=== PATIENT | female | born 1965 | race Caucasian/White ===

== ENCOUNTER 2017-08-03 14:17 | Observation (INO) | payer SELFPAY ==
[~2017-08-03 14:17] MED LIST: BACT800T5 PO
[2017-08-03 14:20] VITALS: BP 154/100; PULSE 88; RESP 20; TEMP 97.6; O2SAT 98
--- NOTE | 2017-08-03 14:51 | PD ---
HPI Chief Complaint: Chest Pain Time Seen by Provider: 14:31 Travel History International Travel<30 days: No Contact w/Intl Traveler<30days: No Traveled to known affect area: No History of Present Illness HPI 51-year-old female presents to the emergency department for evaluation of left shoulder pain that radiates to the left chest that started approximately 2 days ago. She currently rates the pain 3/10, aching and sharp. She states she did have a sharp headache that resolved approximately one day ago. She has no headache at this time. Patient states that she was seen a winch runner at one point, but cannot elaborate on why she was seen a winch runner. The patient states she has not follow-up with a doctor. She denies taking any medications. She did take an aspirin yesterday, but not today. Patient states that she snorted cocaine yesterday, but started having the pain before she snorted the cocaine. No fevers or chills. She does report a cough and congestion as well. She is a current tobacco user. She denies any exacerbating or alleviating factors. Moderate severity. Patient does state that she vomited 1 yesterday. She has not vomited today. Patient denies any recent surgery or travel. No history DVT or PE. No hemoptysis. She is not on control pills. No leg edema. PFSH Past Medical History Hx Anticoagulant Therapy: No Arthritis: Yes (RA) Anxiety: Yes Cardiovascular Problems: Yes (HTN) Chemotherapy: No Cerebrovascular Accident: Yes Diabetes: No Endocrine: No Headaches: Yes Hepatitis: Yes (c) Musculoskeletal: Yes Neurologic: Yes (cant tell you can't remember runs in family ) Respiratory: No (awak a lot at night can't sleep difficulty breathing) Immunizations Current: Yes Migraines: Yes Seizures: No Thyroid Disease: No : 3 Para: 3 Past Surgical History Abdominal Surgery: No Cardiac Surgery: No Section: Yes Ear Surgery: No Eye Surgery: No Genitourinary Surgery: No Gynecologic Surgery: Yes (c sec) Hysterectomy: No Neurologic Surgery: No Oral Surgery: No Thoracic Surgery: Yes (collapsed lung) Other Surgery: Yes (c sec) Social History Alcohol Use: Yes Tobacco Use: Yes (/2 ppd) Substance Use: Yes (cocaine) Allergies-Medications (Allergen,Severity, Reaction): Coded Allergies: No Known Allergies (Unverified , 04/12/16) Reported Meds & Prescriptions Reported Meds & Active Scripts Active Bactrim DS (Sulfamethoxazole-Trimethoprim DS) 1 Tab Tab 1 Tab PO BID 7 Days Review of Systems Except as stated in HPI: all other systems reviewed are Neg Physical Exam Narrative GENERAL: Well-nourished, well-developed female patient, ambulatory. Afebrile. SKIN: Focused skin assessment warm/dry. HEAD: Normocephalic. Atraumatic. EYES: No scleral icterus. No injection or drainage. NECK: Supple, trachea midline. No JVD or lymphadenopathy. CARDIOVASCULAR: Regular rate and rhythm without murmurs, gallops, or rubs. Bilateral radial and pedal pulses are 2+. RESPIRATORY: Breath sounds equal bilaterally. No accessory muscle use. Lungs sounds are clear to auscultation. GASTROINTESTINAL: Abdomen soft, non-tender, nondistended. MUSCULOSKELETAL: No cyanosis, or edema. BACK: Nontender without obvious deformity. No CVA tenderness. Data Data Last Documented VS Vital Signs Date Time Temp Pulse Resp B/P (MAP) Pulse Ox O2 Delivery O2 Flow Rate FiO2 08/03/17 15:01 99 Room Air 08/03/17 15:01 83 16 123/71 (88) 08/03/17 14:20 97.6 Orders Orders Electrocardiogram (08/03/17 14:46) Basic Metabolic Panel (Bmp) (08/03/17 14:46) Ckmb (Isoenzyme) Profile (08/03/17 14:46) Complete Blood Count With Diff (08/03/17 14:46) Magnesium (Mg) (08/03/17 14:46) Prothrombin Time / Inr (Pt) (08/03/17 14:46) Act Partial Throm Time (Ptt) (08/03/17 14:46) Troponin I (08/03/17 14:46) Chest, Single Ap (08/03/17 14:46) Ecg Monitoring (08/03/17 14:46) Bilateral Bp Monitoring (08/03/17 14:46) Iv Access Insert/Monitor (08/03/17 14:46) Oximetry (08/03/17 14:46) Oxygen Administration (08/03/17 14:46) Aspirin Chew (Aspirin Chew) (08/03/17 15:00) Sodium Chloride 0.9% Flush (Ns Flush) (08/03/17 15:00) Drug Screen, Random Urine (08/03/17 14:46) CKMB (08/03/17 14:43) CKMB% (08/03/17 14:43) Labs Laboratory Tests Test 08/03/17 14:43 08/03/17 15:43 White Blood Count 7.0 TH/MM3 Red Blood Count 5.12 MIL/MM3 Hemoglobin 14.7 GM/DL Hematocrit 43.2 % Mean Corpuscular Volume 84.5 FL Mean Corpuscular Hemoglobin 28.8 PG Mean Corpuscular Hemoglobin Concent 34.1 % Red Cell Distribution Width 13.8 % Platelet Count 313 TH/MM3 Mean Platelet Volume 7.8 FL Neutrophils (%) (Auto) 57.5 % Lymphocytes (%) (Auto) 31.7 % Monocytes (%) (Auto) 6.9 % Eosinophils (%) (Auto) 3.0 % Basophils (%) (Auto) 0.9 % Neutrophils # (Auto) 4.0 TH/MM3 Lymphocytes # (Auto) 2.2 TH/MM3 Monocytes # (Auto) 0.5 TH/MM3 Eosinophils # (Auto) 0.2 TH/MM3 Basophils # (Auto) 0.1 TH/MM3 CBC Comment DIFF FINAL Differential Comment Prothrombin Time 9.4 SEC Prothromb Time International Ratio 0.9 RATIO Activated Partial Thromboplast Time 30.4 SEC Blood Urea Nitrogen 13 MG/DL Creatinine 0.93 MG/DL Random Glucose 107 MG/DL Calcium Level 9.0 MG/DL Magnesium Level 2.3 MG/DL Sodium Level 141 MEQ/L Potassium Level 4.3 MEQ/L Chloride Level 108 MEQ/L Carbon Dioxide Level 25.9 MEQ/L Anion Gap 7 MEQ/L Estimat Glomerular Filtration Rate 63 ML/MIN Total Creatine Kinase 103 U/L Creatine Kinase MB 1.3 NG/ML Troponin I LESS THAN 0.02 NG/ML MDM Medical Decision Making Medical Screen Exam Complete: Yes Emergency Medical Condition: Yes Medical Record Reviewed: Yes Interpretation(s) Last Impressions Chest X-Ray 08/03/17 1446 Signed Impressions: Service Date/Time: Thursday, August 03, 2017 14:52 - CONCLUSION: No acute disease. Mich Garcia MD Differential Diagnosis Chest wall pain versus anxiety versus ACS versus pneumonia versus pneumothorax versus cocaine induced chest pain versus unlikely PE Narrative Course 51-year-old female presents to the emergency department for evaluation of left- sided chest pain that started 2 days ago. She does not cocaine yesterday. EKG shows sinus rhythm, heart rate 79, no acute ST changes. CBC, BMP, CK, troponin , magnesium, PTT, PT/INR, UDS are ordered and pending. Patient is given aspirin 162 mg by mouth. Chest x-ray is ordered and pending. CBC is unremarkable. BMP shows no acute abnormality. CK is 103. Troponin is less than 0.02. Magnesium is 2.3. Coags show no acute abnormality. UDS is pending. Chest x-ray shows no acute disease. Patient will be admitted to the chest pain center for further evaluation. Diagnosis Primary Impression: Chest pain Qualified Codes: R07.9 - Chest pain, unspecified Admitting Information Admitting Physician Requests: Shyanne Newman Aug 03, 2017 14:51
[2017-08-03] MEDS ORDERED: ASPIRIN 81 MG CHEW TAB PO ONE (15:00)
[2017-08-03] MEDS ORDERED: SODIUM CHLORIDE 0.9% FLUSH 10 ML FLUSH IVF PRN (15:00)
[2017-08-03 15:01] VITALS: BP 123/71; PULSE 77; PULSE 83; RESP 16; RESP 18; O2SAT 99
--- NOTE | 2017-08-03 15:03 | RADRPT ---
EXAM DATE/TIME: 08/03/2017 14:52 [facility] COMPARISON: CHEST SINGLE AP, April 12, 2016, 21:49. INDICATIONS : Chest pain and shortness of breath for 3 days. MEDICAL HISTORY : Stroke. SURGICAL HISTORY : None. ENCOUNTER: Initial ACUITY: 3 days PAIN SCORE: 3/10 LOCATION: Bilateral chest FINDINGS: A single view of the chest demonstrates the lungs to be symmetrically aerated without evidence of mas s, infiltrate or effusion. The cardiomediastinal contours are unremarkable. Osseous structures are intact. There are multiple overlying electrocardiogram leads. CONCLUSION: No acute disease. Mich Garcia MD on August 03, 2017 at 15:01 Board Certified Radiologist. This report was verified electronically.
[2017-08-03 15:12] LABS: BASOPHIL # 0.1 TH/MM3 (0-0.2); BASOPHIL % 0.9 % (0.0-2.0); EOSINOPHIL # 0.2 TH/MM3 (0-0.4); HEMATOCRIT 43.2 % (35.0-46.0); HEMOGLOBIN 14.7 GM/DL (11.6-15.3); LYMPH % 31.7 % (9.0-44.0); LYMPHOCYTE # 2.2 TH/MM3 (1.0-4.8); MEAN CELL VOLUME 84.5 FL (80.0-100.0); MEAN CORPUSCULAR HEMOGLOBIN 28.8 PG (27.0-34.0); MEAN CORPUSCULAR HGB CONC 34.1 % (32.0-36.0); MEAN PLATELET VOLUME 7.8 FL (7.0-11.0); MONO % 6.9 % (0.0-8.0); MONOCYTE # 0.5 TH/MM3 (0-0.9); NEUT % 57.5 % (16.0-70.0); PLATELET COUNT 313 TH/MM3 (150-450); RED BLOOD COUNT 5.12 MIL/MM3 (4.00-5.30); RED CELL DISTRIBUTION WIDTH 13.8 % (11.6-17.2)
[2017-08-03 15:27] LABS: INTERNATIONAL NORMALIZED RATIO 0.9 RATIO; PROTHROMBIN TIME - PATIENT 9.4 SEC (9.8-11.6)
[2017-08-03 15:34] LABS: BICARBONATE 25.9 MEQ/L (21.0-32.0); BLOOD UREA NITROGEN 13 MG/DL (7-18); CHLORIDE 108 MEQ/L (98-107); CREATININE 0.93 MG/DL (0.50-1.00); GLOMERULAR FILTRATION RATE 63 ML/MIN (>89); GLUCOSE,RANDOM 107 MG/DL (74-106); MAGNESIUM 2.3 MG/DL (1.5-2.5); SODIUM (NA) 141 MEQ/L (136-145); TROPONIN I LESS THAN 0.02 NG/ML (0.02-0.05)
[2017-08-03] MEDS ORDERED: ALPRAZolam 0.25 MG TAB PO PRN (18:00)
[2017-08-03] MEDS ORDERED: ACETAMINOPHEN/HYDROcodone 325 MG/7.5 MG TAB PO PRN (18:00)
[2017-08-03] MEDS ORDERED: ONDANSETRON HCL 4 MG/2 ML VIAL IV PUSH PRN (18:00)
[2017-08-03] MEDS ORDERED: cloNIDine HCL 0.1 MG TAB PO PRN (18:00)
[2017-08-03] MEDS ORDERED: ACETAMINOPHEN 500 MG CPLT PO PRN (18:00)
[2017-08-03] MEDS ORDERED: RESP: ALBUTEROL 2.5 MG/IPRATROPIUM 0.5 MG NEB (PRN) INH (18:00)
--- NOTE | 2017-08-03 18:08 | HHI.HP ---
HPI Primary Care Physician No Primary Care Physician Chief Complaint Chest pain History of Present Illness This is a 51-year-old female that presents to ED via private vehicle with a complaint of 3 days of intermittent chest discomfort. She claims a left-sided sharp discomfort. Not exertional. States she does nothing strenuous. It will last 1-2 minutes. She had times short of breath and diaphoretic with the. She has been nauseous with the discomforts as well. She had one episode of emesis and felt better afterwards. He was nonbloody nonbilious. Denies dark or tarry stools. Denies blood in stool. Denies fevers or chills. Denies recent travel. Patient states she has a chronic cough read states "I have a smoker's cough." Nonproductive. Patient also admits to using cocaine. States she used cocaine 2 days ago. States "I snorted 2 lines." States last time she is cocaine was 4 months ago. She also states that she took a Xanax from a friend thinking that would help with the discomfort but it did not. Review of Systems General: Patient denies fevers, chills recent, and recent travel HEENT: Patient denies headache, sore throat, difficulty swallowing. Cardiovascular: She had diaphoresis. Has the chest discomfort as mentioned above. Denies sensation of heart beating rapidly or irregularly. No syncope. Respiratory: Has had intermittent shortness of breath. Denies inspirational chest discomfort. Denies coughing wheezing or hemoptysis. GI: Complaining of intermittent nausea with one episode of nonbloody, nonbilious emesis. Patient denies diarrhea, abdominal pain, bloody stools. Musculoskeletal: Patient denies joint pain or edema. Denies calf pain or edema. Neurovascular: Patient denies numbness, tingling, weakness in extremities. Denies headache. Endocrine: Denies polyuria and polydipsia. Hematologic: Denies easy bruising. Skin: Denies rash or itching. Past Family Social History Allergies: Coded Allergies: No Known Allergies (Unverified , 04/12/16) Past Medical History Substance abuse. Tobacco abuse. Denies hypertension, hyperlipidemia, diabetes , and known CAD. Past Surgical History Noncontributory. Reported Medications Reported Meds & Active Scripts Active Bactrim DS (Sulfamethoxazole-Trimethoprim DS) 1 Tab Tab 1 Tab PO BID 7 Days Active Ordered Medications Current Medications Medications (Trade) Dose Ordered Sig/Gus Route Start Time Stop Time Status Last Admin (NS Flush) 2 ml UNSCH PRN IVF 08/03/17 15:00 Family History States her mother had an [place] in her 60s. Social History Smokes one half pack of cigarettes a day for 30 years. Has occasional alcohol. States she snorted 2 lines of cocaine 2 days ago and prior that it had been 4 months since last using cocaine. Denies other illicit drugs. Use a friend Xanax to help with the discomfort. Patient states she is retired. Physical Exam Vital Signs Vital Signs Date Time Temp Pulse Resp B/P (MAP) Pulse Ox O2 Delivery O2 Flow Rate FiO2 08/03/17 15:01 99 Room Air 08/03/17 15:01 83 16 123/71 (88) 99 Room Air 08/03/17 15:01 16 99 Room Air 08/03/17 15:01 77 18 99 Room Air 08/03/17 14:20 97.6 88 20 154/100 (118) 98 Room Air Physical Exam GENERAL: This is a well-nourished, well-developed patient, in no apparent distress. Patient speaks in clear complete sentences. Patient is pleasant. HEENT: Head is atraumatic and normocephalic. Neck is supple without lymphadenopathy and trachea is midline. No JVD or carotid bruits. CARDIOVASCULAR: Regular rate and rhythm without murmurs, gallops, or rubs. RESPIRATORY: Clear to auscultation. Breath sounds equal bilaterally. No wheezes , rales, or rhonchi. Chest wall is nontender. No use of accessory muscles. GASTROINTESTINAL: Abdomen is nontender, nondistended. Abdomen soft. No obvious pulsatile mass or bruit. No CVA tenderness. Strong femoral pulses bilaterally. Normal bowel sounds in all quadrants. MUSCULOSKELETAL: Patient is moving upper and lower extremities freely. No calf tenderness or edema, no Homans sign. Strong pulses in upper and lower extremities. NEUROLOGICAL: Patient is alert and oriented. Cranial nerves 2-12 are grossly intact. No focal deficits and speech is clear. SKIN: No rash and turgor is normal. Laboratory Laboratory Tests Test 08/03/17 14:43 08/03/17 15:43 White Blood Count 7.0 Red Blood Count 5.12 Hemoglobin 14.7 Hematocrit 43.2 Mean Corpuscular Volume 84.5 Mean Corpuscular Hemoglobin 28.8 Mean Corpuscular Hemoglobin Concent 34.1 Red Cell Distribution Width 13.8 Platelet Count 313 Mean Platelet Volume 7.8 Neutrophils (%) (Auto) 57.5 Lymphocytes (%) (Auto) 31.7 Monocytes (%) (Auto) 6.9 Eosinophils (%) (Auto) 3.0 Basophils (%) (Auto) 0.9 Neutrophils # (Auto) 4.0 Lymphocytes # (Auto) 2.2 Monocytes # (Auto) 0.5 Eosinophils # (Auto) 0.2 Basophils # (Auto) 0.1 CBC Comment DIFF FINAL Differential Comment Prothrombin Time 9.4 Prothromb Time International Ratio 0.9 Activated Partial Thromboplast Time 30.4 Blood Urea Nitrogen 13 Creatinine 0.93 Random Glucose 107 Calcium Level 9.0 Magnesium Level 2.3 Sodium Level 141 Potassium Level 4.3 Chloride Level 108 Carbon Dioxide Level 25.9 Anion Gap 7 Estimat Glomerular Filtration Rate 63 Total Creatine Kinase 103 Creatine Kinase MB 1.3 Troponin I LESS THAN 0.02 Urine Opiates Screen NEG Urine Barbiturates Screen NEG Urine Amphetamines Screen NEG Urine Benzodiazepines Screen POS Urine Cocaine Screen POS Urine Cannabinoids Screen NEG Result Diagram: 08/03/17 1443 08/03/17 1443 Imaging Last 48 hours Impressions Chest X-Ray 08/03/17 1446 Signed Impressions: Service Date/Time: Thursday, August 03, 2017 14:52 - CONCLUSION: No acute disease. Mich Garcia MD Course Initial EKG has sinus rhythm without significant ST segment depressions or elevations. Caprini VTE Risk Assessment Caprini VTE Risk Assessment: No/Low Risk (score <= 1) Caprini Risk Assessment Model Point Value = 1 Point Value = 2 Point Value = 3 Point Value = 5 Age 41-60 Minor surgery BMI > 25 kg/m2 Swollen legs Varicose veins or History of unexplained or recurrent spontaneous Oral contraceptives or hormone replacement Sepsis (< 1 month) Serious lung disease, including pneumonia (< 1 month) Abnormal pulmonary function Acute myocardial infarction Congestive heart failure (< 1 month) History of inflammatory bowel disease Medical patient at bed rest Age 61-74 Arthroscopic surgery Major open surgery (> 45 min) Laparoscopic surgery (> 45 min) Malignancy Confined to bed (> 72 hours) Immobilizing plaster cast Central venous access Age >= 75 History of VTE Family history of VTE Factor V Leiden Prothrombin [id number] Lupus anticoagulant Anticardiolipin antibodies Elevated serum homocysteine Heparin-induced thrombocytopenia Other congenital or acquired thrombophilia Stroke (< 1 month) Elective arthroplasty Hip, pelvis, or leg fracture Acute spinal cord injury (< 1 month) Prophylaxis Regimen Total Risk Factor Score Risk Level Prophylaxis Regimen 0-1 Low Early ambulation 2 Moderate Order ONE of the following: *Sequential Compression Device (SCD) *Heparin 5000 units SQ BID 3-4 Higher Order ONE of the following medications: *Heparin 5000 units SQ TID *Enoxaparin/Lovenox 40 mg SQ daily (WT < 150 kg, CrCl > 30 mL/min) *Enoxaparin/Lovenox 30 mg SQ daily (WT < 150 kg, CrCl > 10-29 mL/min) *Enoxaparin/Lovenox 30 mg SQ BID (WT < 150 kg, CrCl > 30 mL/min) AND/OR *Sequential Compression Device (SCD) 5 or more Highest Order ONE of the following medications: *Heparin 5000 units SQ TID (Preferred with Epidurals) *Enoxaparin/Lovenox 40 mg SQ daily (WT < 150 kg, CrCl > 30 mL/min) *Enoxaparin/Lovenox 30 mg SQ daily (WT < 150 kg, CrCl > 10-29 mL/min) *Enoxaparin/Lovenox 30 mg SQ BID (WT < 150 kg, CrCl > 30 mL/min) AND *Sequential Compression Device (SCD) Assessment and Plan Assessment and Plan * Chest pain: Patient will continue to have serial cardiac enzymes and EKGs for ruling out purposes. She has been seen by Dr. Diego Banks of cardiology in the chest pain center. States she can walk on a treadmill. Patient will proceed with a Tom protocol ETT if ruling out. She'll be discharged home if her stress test was nonischemic with instructions to follow-up with a local primary care physician. Return to ED for interval issues. * Cocaine abuse: Patient has been counseled on importance of never using cocaine again. She was told that it could kill her. Voices understanding. * Tobacco abuse: Patient counseled on importance of smoking cessation. Patient is stable this time. She is agreeable to this plan. Jose Garcia Aug 03, 2017 18:08
[2017-08-03 18:33] VITALS: BP 123/78; PULSE 80; RESP 16; O2SAT 98
[2017-08-03] MEDS: PANTOPRAZOLE SOD 40 MG DELAYED RELEASE TAB PO SCH (18:37)
[2017-08-03 19:50] LABS: TROPONIN I LESS THAN 0.02 NG/ML (0.02-0.05)
[2017-08-03 21:15] LABS: TROPONIN I LESS THAN 0.02 NG/ML (0.02-0.05)
[2017-08-03 22:09] VITALS: BP 154/61; PULSE 91; RESP 18; TEMP 98.5; O2SAT 97
[2017-08-03 22:59] VITALS: O2SAT 97
[2017-08-03 23:34] VITALS: BP 143/61; PULSE 87; RESP 18; TEMP 98.9; O2SAT 95
[2017-08-04 04:50] VITALS: BP 113/60; PULSE 72; RESP 18; TEMP 97.8; O2SAT 95
[2017-08-04 05:03] VITALS: PULSE 73
--- NOTE | 2017-08-04 07:06 | EKG ---
Date Performed: 08/03/2017 Time Performed: 18:37:16 PTAGE: 51 years EKG: Sinus rhythm NORMAL ECG Since PREVIOUS TRACING , no significant change noted PREVIOUS TRACIN08/03/2017 14.39 DOCTOR: Marquita Gonzalez Interpretating Date/Time 08/04/2017 07:05:47
--- NOTE | 2017-08-04 07:08 | EKG ---
Date Performed: 08/03/2017 Time Performed: 21:24:55 PTAGE: 51 years EKG: Sinus rhythm NONSPECIFIC T-WAVE ABNORMALITY BORDERLINE ECG Since PREVIOUS TRACING , no significant change noted PREVIOUS TRACIN08/03/2017 18.37 DOCTOR: Marquita Gonzalez Interpretating Date/Time 08/04/2017 07:07:19
[2017-08-04 07:54] VITALS: BP 116/67; PULSE 79; PULSE 91; RESP 18; TEMP 97.8; O2SAT 95
--- NOTE | 2017-08-04 07:56 | PD.CARD.PN ---
Subjective Subjective Remarks No current chest discomfort. One episode of left anterior chest discomfort overnight. Characterized as quick onset, sharp pain. No radiation. Severity moderate. No associated symptoms. Duration 30 seconds. No known precipitating or relieving factors. Objective Medications Current Medications Medications (Trade) Dose Ordered Sig/Gus Route Start Time Stop Time Status Last Admin (NS Flush) 2 ml UNSCH PRN IVF 08/03/17 15:00 (Tylenol) 500 mg Q4H PRN PO 08/03/17 18:00 08/03/17 23:55 (Randolph 7.5-325 Mg) 1 tab Q4H PRN PO 08/03/17 18:00 (Zofran Inj) 4 mg Q6H PRN IV PUSH 08/03/17 18:00 (Protonix) 40 mg DAILY PO 08/03/17 18:00 08/03/17 18:37 (Aspirin) 325 mg DAILY PO 08/04/17 09:00 (Xanax) 0.25 mg Q8H PRN PO 08/03/17 18:00 (Duoneb Neb) 1 ampule Q4HR NEB PRN INH 08/03/17 18:00 (Catapres) 0.1 mg Q4H PRN PO 08/03/17 18:00 Vital Signs / I&O Vital Signs Date Time Temp Pulse Resp B/P (MAP) Pulse Ox O2 Delivery O2 Flow Rate FiO2 08/04/17 07:54 91 08/04/17 07:54 97.8 79 18 116/67 (83) 95 08/04/17 05:03 73 08/04/17 04:50 97.8 72 18 113/60 (77) 95 08/03/17 23:34 98.9 87 18 143/61 (88) 95 08/03/17 22:59 97 08/03/17 22:09 98.5 91 18 154/61 (92) 97 08/03/17 18:33 80 16 123/78 (93) 98 Room Air 08/03/17 15:01 99 Room Air 08/03/17 15:01 83 16 123/71 (88) 99 Room Air 08/03/17 15:01 16 99 Room Air 08/03/17 15:01 77 18 99 Room Air 08/03/17 14:20 97.6 88 20 154/100 (118) 98 Room Air Physical Exam GENERAL: Alert WN, WD, NAD, pleasant, female who appears older than stated age. HEAD: NC, AT CV: RRR, without murmur, rub, gallop, no JVD, S1-S2 no S3-S4. Chest wall nontender with palpation. RESP: Clear lungs throughout bilateral, no crackles, wheeze, rhonchi, symmetrical chest rise, nonlabored, able to speak in full sentences MS: Normal tone 4 extremities, full range of motion PSYCH: A+O 3, pleasant affect, appropriate speech, mood, insight and judgment SKIN: Normal turgor, normal texture Laboratory Laboratory Tests Test 08/03/17 14:43 08/03/17 15:43 08/03/17 18:25 08/03/17 20:47 White Blood Count 7.0 TH/MM3 Red Blood Count 5.12 MIL/MM3 Hemoglobin 14.7 GM/DL Hematocrit 43.2 % Mean Corpuscular Volume 84.5 FL Mean Corpuscular Hemoglobin 28.8 PG Mean Corpuscular Hemoglobin Concent 34.1 % Red Cell Distribution Width 13.8 % Platelet Count 313 TH/MM3 Mean Platelet Volume 7.8 FL Neutrophils (%) (Auto) 57.5 % Lymphocytes (%) (Auto) 31.7 % Monocytes (%) (Auto) 6.9 % Eosinophils (%) (Auto) 3.0 % Basophils (%) (Auto) 0.9 % Neutrophils # (Auto) 4.0 TH/MM3 Lymphocytes # (Auto) 2.2 TH/MM3 Monocytes # (Auto) 0.5 TH/MM3 Eosinophils # (Auto) 0.2 TH/MM3 Basophils # (Auto) 0.1 TH/MM3 CBC Comment DIFF FINAL Differential Comment Prothrombin Time 9.4 SEC Prothromb Time International Ratio 0.9 RATIO Activated Partial Thromboplast Time 30.4 SEC Blood Urea Nitrogen 13 MG/DL Creatinine 0.93 MG/DL Random Glucose 107 MG/DL Calcium Level 9.0 MG/DL Magnesium Level 2.3 MG/DL Sodium Level 141 MEQ/L Potassium Level 4.3 MEQ/L Chloride Level 108 MEQ/L Carbon Dioxide Level 25.9 MEQ/L Anion Gap 7 MEQ/L Estimat Glomerular Filtration Rate 63 ML/MIN Total Creatine Kinase 103 U/L 84 U/L 78 U/L Creatine Kinase MB 1.3 NG/ML Troponin I LESS THAN 0.02 NG/ML LESS THAN 0.02 NG/ML LESS THAN 0.02 NG/ML Urine Opiates Screen NEG Urine Barbiturates Screen NEG Urine Amphetamines Screen NEG Urine Benzodiazepines Screen POS Urine Cocaine Screen POS Urine Cannabinoids Screen NEG Imaging Last 24 hours Impressions Chest X-Ray 08/03/17 1446 Signed Impressions: Service Date/Time: Thursday, August 03, 2017 14:52 - CONCLUSION: No acute disease. Mich Garcia MD Assessment and Plan Assessment and Plan #1 Chest pain-ruled out with serial EKGs and cardiac enzymes. Proceed with exercise stress testing. If unremarkable, plans to discharge home with follow up with PCP. Patient agreeable to plan of care. #2 Tobacco use-strongly encouraged and stressed the importance of tobacco cessation. Instructed to quit smoking. #3 Cocaine use-discussed risk of cocaine use, including by not limited to, [place] and . Instructed to quit using cocaine. Corine Jimenez [facility] Aug 04, 2017 07:56
[2017-08-04] MEDS: PANTOPRAZOLE SOD 40 MG DELAYED RELEASE TAB PO SCH (08:10)
[2017-08-04] MEDS ORDERED: ASPIRIN 325 MG TAB PO SCH (09:00)
[2017-08-04 11:37] VITALS: BP 103/58; PULSE 79; RESP 18; TEMP 97.6; O2SAT 96
--- NOTE | 2017-08-04 12:08 | EKG ---
Date Performed: 08/03/2017 Time Performed: 14:39:48 PTAGE: 51 years EKG: Sinus rhythm NORMAL ECG Since PREVIOUS TRACING , no significant change noted PREVIOUS TRACIN04/12/2016 22.36 DOCTOR: Marquita Gonzalez Interpretating Date/Time 08/04/2017 12:08:07
--- NOTE | 2017-08-04 12:14 | TR ---
Date Performed: 08/04/2017 Time Performed: 10:23:22 DOCTOR: Marquita Gonzalez DRUG LIST: CLINICAL HISTORY: REASON FOR TEST: REASON FOR ENDING: OBSERVATION: CONCLUSION: Tom protocol attempted. Stopped sec to patient request to stop. Reporting inabilit y to keep up with speed and shortness of breath. No acute findings on EKG or with physical exam. Will convert to lexiscan. COMMENTS:
[2017-08-04] MEDS ORDERED: REGADENOSON INJ 0.4 MG/5 ML SYR ONE (13:55)
[2017-08-04 15:40] VITALS: BP 116/70; PULSE 85; RESP 18; TEMP 97.9; O2SAT 94
--- NOTE | 2017-08-04 15:46 | RADRPT ---
EXAM DATE/TIME: 08/04/2017 13:37 [facility] COMPARISON: No previous studies available for comparison. INDICATIONS : Lt shoulder pain radiating to left chest. Angina. DOSE: 25.9 mCi Tc99m Myoview at stress. 8.7 mCi Tc99m Myoview at rest. 0.4 mg Lexiscan STRESS SYMPTOMS: Chest pain and dyspnea. EJECTION FRACTION: > 70% MEDICAL HISTORY : Stroke. Smoker. Cocaine use. SURGICAL HISTORY : section. ENCOUNTER: Initial ACUITY: 2 days PAIN SCALE: 6/10 LOCATION: Left chest TECHNIQUE: The patient underwent pharmacologic stress with infusion of prescribed dose. Continuous ECG tracing was monitored during stress. Gated SPECT imaging was performed after stress and conventional SPECT i maging was performed at rest. The examination was performed on a SPECT/CT scanner, both attenuation and non-corrected datasets were reviewed. FINDINGS: DISTRIBUTION: The maximum perfused segment at stress is in the lateral wall. PERFUSION STUDY: The pattern of perfusion at stress is within normal limits. GATED STUDY: There is intact wall motion and thickening without hypokinetic or dyskinetic segments. CONCLUSION: No evidence of fixed or reversible perfusion abnormalities. Normal wall motion and ejection fraction. RISK CATEGORY: Low (<1% Annual Mortality Rate) Donn Rivera MD on August 04, 2017 at 15:43 Board Certified Radiologist. This report was verified electronically.
--- NOTE | 2017-08-04 15:52 | HHI.DCPOC ---
Discharge Care Plan Diagnosis: (1) Atypical chest pain (2) Tobacco abuse (3) Cocaine abuse Goals to Promote Your Health * To prevent worsening of your condition and complications * To maintain your health at the optimal level Directions to Meet Your Goals Take your medications as prescribed Follow your dietary instruction Follow activity as directed Keep your appointments as scheduled Take your immunizations and boosters as scheduled If your symptoms worsen call your PCP, if no PCP go to Urgent Care Center or Emergency Room Smoking is Dangerous to Your Health. Avoid second hand smoke Call the 24-hour hour crisis hotline for domestic abuse at Corine Jimenez Aug 04, 2017 15:52
--- NOTE | 2017-08-05 14:09 | TR ---
Date Performed: 08/04/2017 Time Performed: 13:57:30 DOCTOR: Marquita Gonzalez DRUG LIST: CLINICAL HISTORY: ANGINA REASON FOR TEST: REASON FOR ENDING: OBSERVATION: CONCLUSION: Lexiscan stress test was performed under standard four minute protocol. Radionuclid e was injected one minute prior to ending the test. No electrocardiographic abormalities were present to suggest ischemia. Nuclear imaging and interpretation are pending. COMMENTS:
== END 2017-08-04 17:12 | disposition home or self-care (01) ==
LOC: NEPE 14:17 → NEDA 15:59 → NEPGCP 18:43
PROVIDERS: ADMIT Internal Medicine Cardiovascular Disease; ATTEND Internal Medicine Cardiovascular Disease
DX: R07.89 Other chest pain (principal); F17.200 Nicotine dependence, unspecified, uncomplicated; F14.10 Cocaine abuse, uncomplicated; M25.512 Pain in left shoulder; I10 Essential (primary) hypertension; M06.9 Rheumatoid arthritis, unspecified; G43.909 Migraine, unspecified, not intractable, without status migrainosus; Z86.73 Personal history of transient ischemic attack (TIA), and cerebral infarction without residual deficits
CPT/HCPCS: 71010; 78452; 80048; 80307; 82550; 82552; 83735; 84484; 85025; 85610; 85730; 93005; 93017; 99285; A9502; G0378; J2785

== ENCOUNTER 2017-10-01 10:56 | Emergency (ER) | payer SELFPAY ==
[~2017-10-01] VITALS: Ht 160 cm; Wt 81.5 kg
[2017-10-01 10:58] VITALS: BP 189/109; PULSE 101; RESP 16; TEMP 98.7; O2SAT 96
[2017-10-01] MEDS ORDERED: SODIUM CHLOR 0.9% 1000 ML INJ 1,000 ML IV ONE (11:23)
[2017-10-01] MEDS ORDERED: ONDANSETRON HCL 4 MG/2 ML VIAL IVP ONE (11:30)
[2017-10-01] MEDS ORDERED: diphenhydrAMINE HCL 50 MG/ML VIAL IVP ONE (11:30)
[2017-10-01] MEDS ORDERED: KETOROLAC TROMETHAMINE 30 MG/ML (IVP) VIAL IVP ONE (11:30)
[2017-10-01] MEDS ORDERED: PROCHLORPERAZINE INJ 10 MG/2 ML VIAL IVP ONE (11:30)
[2017-10-01] MEDS: SODIUM CHLORIDE 0.9% FLUSH 10 ML FLUSH IVF PRN ×2 (11:33→13:43)
[2017-10-01 11:50] LABS: BASOPHIL # 0.1 TH/MM3 (0-0.2); EOSINOPHIL # 0.3 TH/MM3 (0-0.4); EOSINOPHIL % 3.8 % (0.0-4.0); HEMATOCRIT 46.1 % (35.0-46.0); HEMOGLOBIN 15.6 GM/DL (11.6-15.3); LYMPH % 32.1 % (9.0-44.0); LYMPHOCYTE # 2.3 TH/MM3 (1.0-4.8); MEAN CELL VOLUME 83.3 FL (80.0-100.0); MEAN CORPUSCULAR HEMOGLOBIN 28.2 PG (27.0-34.0); MEAN CORPUSCULAR HGB CONC 33.8 % (32.0-36.0); MEAN PLATELET VOLUME 7.8 FL (7.0-11.0); MONOCYTE # 0.6 TH/MM3 (0-0.9); NEUT % 55.1 % (16.0-70.0); PLATELET COUNT 302 TH/MM3 (150-450); RED BLOOD COUNT 5.54 MIL/MM3 (4.00-5.30); WHITE BLOOD COUNT 7.3 TH/MM3 (4.0-11.0)
[2017-10-01 12:00] VITALS: BP 144/66; PULSE 87; O2SAT 98
--- NOTE | 2017-10-01 12:02 | RADRPT ---
EXAM DATE/TIME: 10/01/2017 11:44 [facility] COMPARISON: CT BRAIN W/O CONTRAST, April 12, 2016, 22:06. INDICATIONS : Cephalgia for two days. RADIATION DOSE: 56.35 CTDIvol (mGy) MEDICAL HISTORY : Stroke. Hepatitis C. SURGICAL HISTORY : None. ENCOUNTER: Initial ACUITY: 2 days PAIN SCALE: 10/10 LOCATION: Bilateral head TECHNIQUE: Multiple contiguous axial images were obtained of the head. Using automated exposure control and adj ustment of the mA and/or kV according to patient size, radiation dose was kept as low as reasonably a chievable to obtain optimal diagnostic quality images. DICOM format image data is available electro nically for review and comparison. FINDINGS: CEREBRUM: The ventricles are normal for age. No evidence of midline shift, mass lesion, hemorrhage or acute in farction. No extra-axial fluid collections are seen. There is some stable chronic white matter sarmiento es bilaterally. POSTERIOR FOSSA: The cerebellum and brainstem are intact. The 4th ventricle is midline. The cerebellopontine angle i s unremarkable. EXTRACRANIAL: The visualized portion of the orbits is intact. SKULL: The calvaria is intact. No evidence of skull fracture. No new or significant changes compared to the prior study. CONCLUSION: Stable CT scan of the brain compared to 04/12/2016. No acute pathology. Phil Raman MD on October 01, 2017 at 11:59 Board Certified Radiologist. This report was verified electronically.
[2017-10-01 12:04] LABS: PROTHROMBIN TIME - PATIENT 9.7 SEC (9.8-11.6)
[2017-10-01 12:06] LABS: AST (GOT) 23 U/L (15-37); BICARBONATE 27.2 MEQ/L (21.0-32.0); BLOOD UREA NITROGEN 10 MG/DL (7-18); CALCIUM 9.2 MG/DL (8.5-10.1); CHLORIDE 108 MEQ/L (98-107); CREATININE 0.85 MG/DL (0.50-1.00); GLOMERULAR FILTRATION RATE 70 ML/MIN (>89); GLUCOSE,RANDOM 98 MG/DL (74-106); SODIUM (NA) 139 MEQ/L (136-145)
[2017-10-01 12:07] LABS: ALT (GPT) 22 U/L (10-53)
[2017-10-01 12:09] LABS: ALKALINE PHOSPHATASE 98 U/L (45-117); TOTAL BILIRUBIN ADULT 0.4 MG/DL (0.2-1.0); TOTAL PROTEIN 8.2 GM/DL (6.4-8.2)
--- NOTE | 2017-10-01 12:43 | PD ---
HPI Chief Complaint: Headache Time Seen by Provider: 11:10 Travel History International Travel<30 days: No Contact w/Intl Traveler<30days: No Traveled to known affect area: No History of Present Illness HPI 51-year-old female with PMH of anxiety, hepatitis C, TIA presents to the ED for evaluation of 05/17 posterior headache. Gradual onset last night. Worsened by exposure to light, movement. Accompanied by mild nausea, photophobia and seeing spots. Patient denies fever, chills, vomiting, CP, palpitations, SOB, unilateral weakness, facial droop, difficulties with speech, neck or back pain, cold or flu symptoms, history of migraines, history of seasonal allergies. She did not receive this years flu vaccines. at bedside states that he just got over the flu. PFSH Past Medical History Hx Anticoagulant Therapy: No Arthritis: Yes (RA) Anxiety: Yes Heart Rhythm Problems: No Cardiac Catheterization: No Cardiovascular Problems: No High Cholesterol: No Chemotherapy: No Congestive Heart Failure: No Cerebrovascular Accident: Yes Diabetes: No Endocrine: No Headaches: Yes Hepatitis: Yes (Hep C) Heparin Induced Thrombocytopen: No Hypertension: No Musculoskeletal: Yes Neurologic: Yes Respiratory: No Immunizations Current: Yes Migraines: Yes Seizures: No Thyroid Disease: No ?: Unknown : 3 Para: 3 Past Surgical History Abdominal Surgery: No Cardiac Surgery: No Section: Yes Coronary Artery Bypass Graft: No Ear Surgery: No Eye Surgery: No Genitourinary Surgery: No Gynecologic Surgery: Yes (c sec) Hysterectomy: No Neurologic Surgery: No Oral Surgery: No Thoracic Surgery: Yes (collapsed lung) Other Surgery: Yes (c sec) Family History Family Myocardial Infarction: Yes Social History Alcohol Use: Yes Tobacco Use: Yes (1/2 ppd) Substance Use: Yes (cocaine) Allergies-Medications (Allergen,Severity, Reaction): Coded Allergies: No Known Allergies (Unverified Allergy, Unknown, 10/01/17) Reported Meds & Prescriptions Reported Meds & Active Scripts Active No Active Prescriptions or Reported Medications Review of Systems Except as stated in HPI: all other systems reviewed are Neg Physical Exam Narrative GENERAL: Well-nourished, well-developed anxious white female in no acute distress. SKIN: Focused skin assessment warm/dry. HEAD: Normocephalic. Atraumatic. EYES: No scleral icterus. No injection or drainage. PERRLA. EOMI. NECK: Supple, trachea midline. No JVD or lymphadenopathy. No nuchal rigidity. No midline tenderness. No limitations to range of motion. CARDIOVASCULAR: Regular rate and rhythm without murmurs, gallops, or rubs. RESPIRATORY: Breath sounds clear and equal bilaterally. No accessory muscle use. GASTROINTESTINAL: Abdomen soft, non-tender, nondistended. Active bowel sounds. MUSCULOSKELETAL: No cyanosis, or edema. NEUROLOGICAL: Awake and alert. Cranial nerves II through XII intact. Motor and sensory grossly within normal limits. Five out of 5 muscle strength in all muscle groups. Normal speech. BACK: Nontender without obvious deformity. No CVA tenderness. Data Data Last Documented VS Vital Signs Date Time Temp Pulse Resp B/P (MAP) Pulse Ox O2 Delivery O2 Flow Rate FiO2 10/01/17 13:47 157/75 (102) 10/01/17 12:00 87 98 Room Air 10/01/17 10:58 98.7 16 Orders Orders Complete Blood Count With Diff (10/01/17 11:23) Comprehensive Metabolic Panel (10/01/17 11:23) Prothrombin Time / Inr (Pt) (10/01/17 11:23) Act Partial Throm Time (Ptt) (10/01/17 11:23) Ct Brain W/O Iv Contrast(Rout) (10/01/17 11:23) Ecg Monitoring (10/01/17 11:23) Iv Access Insert/Monitor (10/01/17 11:23) Oximetry (10/01/17 11:23) Sodium Chloride 0.9% Flush (Ns Flush) (10/01/17 11:30) Ketorolac Inj (Toradol Inj) (10/01/17 11:30) Ondansetron Inj (Zofran Inj) (10/01/17 11:30) Prochlorperazine Inj (Compazine Inj) (10/01/17 11:30) Diphenhydramine Inj (Benadryl Inj) (10/01/17 11:30) Sodium Chlor 0.9% 1000 Ml Inj (Ns 1000 M (10/01/17 11:23) Influenzae A/B Antigen (10/01/17 11:23) Ed Discharge Order (10/01/17 13:46) Labs Laboratory Tests Test 10/01/17 11:35 White Blood Count 7.3 TH/MM3 Red Blood Count 5.54 MIL/MM3 Hemoglobin 15.6 GM/DL Hematocrit 46.1 % Mean Corpuscular Volume 83.3 FL Mean Corpuscular Hemoglobin 28.2 PG Mean Corpuscular Hemoglobin Concent 33.8 % Red Cell Distribution Width 14.0 % Platelet Count 302 TH/MM3 Mean Platelet Volume 7.8 FL Neutrophils (%) (Auto) 55.1 % Lymphocytes (%) (Auto) 32.1 % Monocytes (%) (Auto) 8.0 % Eosinophils (%) (Auto) 3.8 % Basophils (%) (Auto) 1.0 % Neutrophils # (Auto) 4.0 TH/MM3 Lymphocytes # (Auto) 2.3 TH/MM3 Monocytes # (Auto) 0.6 TH/MM3 Eosinophils # (Auto) 0.3 TH/MM3 Basophils # (Auto) 0.1 TH/MM3 CBC Comment DIFF FINAL Differential Comment Prothrombin Time 9.7 SEC Prothromb Time International Ratio 1.0 RATIO Activated Partial Thromboplast Time 31.2 SEC Blood Urea Nitrogen 10 MG/DL Creatinine 0.85 MG/DL Random Glucose 98 MG/DL Total Protein 8.2 GM/DL Albumin 4.0 GM/DL Calcium Level 9.2 MG/DL Alkaline Phosphatase 98 U/L Aspartate Amino Transf (AST/SGOT) 23 U/L Alanine Aminotransferase (ALT/SGPT) 22 U/L Total Bilirubin 0.4 MG/DL Sodium Level 139 MEQ/L Potassium Level 4.1 MEQ/L Chloride Level 108 MEQ/L Carbon Dioxide Level 27.2 MEQ/L Anion Gap 4 MEQ/L Estimat Glomerular Filtration Rate 70 ML/MIN [facility] Medical Decision Making Medical Screen Exam Complete: Yes Emergency Medical Condition: Yes Differential Diagnosis Cephalgia versus influenza versus migraine versus ICH versus other Narrative Course 51-year-old female with PMH of anxiety, hepatitis C, TIA presents to the ED for evaluation of 10 posterior headache. Gradual onset last night. Worsened by exposure to light, movement. Accompanied by mild nausea, photophobia and seeing spots. She did not receive this years flu vaccines. at bedside states that he just got over the flu. Patient is tachycardic and hypertensive on presentation. No focal neuro deficits on exam. No nuchal rigidity on exam. IV was established. Patient was administered IM Toradol, Compazine, Benadryl , [address] brain: Stable CT as compared to 04/12/2016. No acute pathology per radiology read. Influenza swab negative. CBC & BMP Diagram 10/01/17 11:35 Total Protein 8.2, Albumin 4.0, Calcium Level 9.2, Alkaline Phosphatase 98, Aspartate Amino Transf (AST/SGOT) 23, Alanine Aminotransferase (ALT/SGPT) 22, Total Bilirubin 0.4 On recheck the patient is sleeping. Blood pressure has improved. She reports resolution of her headache symptoms. She was able to tolerate fluids before discharge. She is stable and discharged home. Diagnosis Primary Impression: Cephalgia Qualified Codes: R51 - Headache Referrals: Primary Care Physician Patient Instructions: Acute Headache (ED), General Instructions Additional Instructions: Rest, hydrate. Avoid known stressors as possible. Follow up with the primary care this week. Return to the ED for any urgent or emergent medical condition. Scripts No Active Prescriptions or Reported Meds Disposition: 01 DISCHARGE HOME Condition: Stable Venessa Owens Oct 01, 2017 12:43
[2017-10-01 13:47] VITALS: BP 157/75
== END 2017-10-01 14:36 | disposition home or self-care (01) ==
LOC: NEPC 10:56
DX: R51 Headache (principal); B19.20 Unspecified viral hepatitis C without hepatic coma; F17.200 Nicotine dependence, unspecified, uncomplicated; F14.90 Cocaine use, unspecified, uncomplicated
CPT/HCPCS: 70450; 80053; 85025; 85610; 85730; 87804; 96361; 96374; 96375; 99284; J0780; J1200; J1885; J2405; J7030

== ENCOUNTER 2017-10-12 13:31 | Emergency (ER) | payer SELFPAY ==
[2017-10-12 14:13] VITALS: BP 169/90; PULSE 89; RESP 18; TEMP 98.5; O2SAT 98
[2017-10-12] MEDS ORDERED: BACT800T5 PO (16:42)
[2017-10-12] MEDS ORDERED: CEPH-460 PO (16:42)
--- NOTE | 2017-10-12 16:47 | PD ---
HPI Chief Complaint: Skin Problem Time Seen by Provider: 16:35 Travel History International Travel<30 days: No Contact w/Intl Traveler<30days: No Traveled to known affect area: No History of Present Illness HPI Patient comes to the emergency department complaining of abscess to her left anterior martínez that began 2 days ago. Patient reports started off as a small pimple has since become progressively larger and started draining today. Patient reports she took some of her brothers Keflex last night and applying warm compresses that seemed to help some. Patient described pain as a burning pressure-like in nature without radiation. Denies any fevers or known trauma. Reports her tetanus shot is up-to-date. PFSH Past Medical History Hx Anticoagulant Therapy: No Arthritis: Yes (RA) Anxiety: Yes Heart Rhythm Problems: No Cardiac Catheterization: No Cardiovascular Problems: No High Cholesterol: No Chemotherapy: No Congestive Heart Failure: No Cerebrovascular Accident: Yes Diabetes: No Endocrine: No Headaches: Yes Hepatitis: Yes (Hep C) Heparin Induced Thrombocytopen: No Hypertension: No Musculoskeletal: Yes Neurologic: Yes Respiratory: No Immunizations Current: Yes Migraines: Yes Seizures: No Thyroid Disease: No : 3 Para: 3 Past Surgical History Abdominal Surgery: No Cardiac Surgery: No Section: Yes Coronary Artery Bypass Graft: No Ear Surgery: No Eye Surgery: No Genitourinary Surgery: No Gynecologic Surgery: Yes (c sec) Hysterectomy: No Neurologic Surgery: No Oral Surgery: No Thoracic Surgery: Yes (collapsed lung) Other Surgery: Yes (c sec) Social History Alcohol Use: Yes Tobacco Use: Yes (1/2 ppd) Substance Use: Yes (cocaine) Allergies-Medications (Allergen,Severity, Reaction): Coded Allergies: No Known Allergies (Verified Allergy, Unknown, 10/12/17) Reported Meds & Prescriptions Reported Meds & Active Scripts Active Keflex (Cephalexin) 500 Mg Cap 500 Mg PO Q8H Bactrim DS (Sulfamethoxazole-Trimethoprim) 800-160 Mg Tab 1 Tab PO BID Review of Systems Except as stated in HPI: all other systems reviewed are Neg Physical Exam Narrative GENERAL: Well-developed, overly nourished, in no acute distress, and non-ill appearing. SKIN: Small draining abscess noted over anterior left martínez. Is tender to palpation. There is no crepitus or significant surrounding cellulitis. HEAD: Atraumatic. Normocephalic. EYES: Pupils equal and round. EOMI. No scleral icterus. No injection or drainage. ENT: No nasal bleeding or discharge. Mucous membranes pink and moist. NECK: Trachea midline. Supple. No nuclear rigidity. RESPIRATORY: No accessory muscle use. No respiratory distress. MUSCULOSKELETAL: No obvious deformities. No clubbing. No cyanosis. No edema. Full range of motion. NEUROLOGICAL: Awake and alert. No obvious cranial nerve deficits. Motor grossly within normal limits. Normal speech. PSYCHIATRIC: Appropriate mood and affect; insight and judgment normal. Data Data Last Documented VS Vital Signs Date Time Temp Pulse Resp B/P (MAP) Pulse Ox O2 Delivery O2 Flow Rate FiO2 10/12/17 14:13 98.5 89 18 169/90 (116) 98 Orders Orders Ed Discharge Order (10/12/17 16:48) Wound Culture And Gram Stain (10/12/17 16:48) [facility] Medical Decision Making Medical Screen Exam Complete: Yes Emergency Medical Condition: Yes Differential Diagnosis Abscess, cellulitis, folliculitis, gangrene Narrative Course The patient has no evidence of significant cellulitis. There is no evidence of necrotizing fasciitis/ Snehal at this time. The patient will be discharged on antibiotics. The patient was given signs and symptoms warnings for worsening infection, such as spreading of redness, increasing pain, and/or swelling, associated heat, or fever or feels worse, and instructed to return immediately if these signs or symptoms worsen. The patient is to return in 2 days for recheck. Sooner if worsens or as needed. The patient agrees with plan. Patient in no obvious distress upon re-evaluation. Patient was asked if they wanted to speak to my attending, which the patient did not wish to do at this time. Any questions/concerns in reference to patient diagnosis/condition discussed and clarified prior to patient's discharge. Reinforced sheer importance of close follow up with patient's primary physician or primary care clinic or return here in 2 days for recheck. Instructed patient to return to ED immediately, if symptoms return/worsen. Patient showed understanding of above instructions. Further instructions and recommendations were detailed in discharge paperwork. Patient ambulated without difficulty out of ED at discharge. Diagnosis Primary Impression: Abscess Referrals: [facility] Patient Instructions: Abscess (ED), General Instructions Additional Instructions: Follow-up with your primary care physician return here in 2 days for recheck. Take all medication as prescribed. Apply warm compresses to affected area multiple times a day to facilitate drainage. Return to the emergency department sooner if symptoms get worse or fevers. Med/Other Pt SpecificInfo: Prescription(s) given Scripts Cephalexin (Keflex) 500 Mg Cap 500 MG PO Q8H for Infection, #30 CAP 0 Refills Prov: Ricky Cosby MD 10/12/17 Sulfamethoxazole-Trimethoprim (Bactrim DS) 800-160 Mg Tab 1 TAB PO BID for Infection, #20 TAB 0 Refills Prov: Ricky Cosby MD 10/12/17 Disposition: 01 DISCHARGE HOME Condition: Stable John Bonilla Oct 12, 2017 16:47
== END 2017-10-12 17:02 | disposition home or self-care (01) ==
LOC: NEPK 13:31
DX: L02.416 Cutaneous abscess of left lower limb (principal); B95.62 Methicillin resistant Staphylococcus aureus infection as the cause of diseases classified elsewhere; B19.20 Unspecified viral hepatitis C without hepatic coma; F17.210 Nicotine dependence, cigarettes, uncomplicated; F14.90 Cocaine use, unspecified, uncomplicated
CPT/HCPCS: 86403; 87070; 87186; 99283

== ENCOUNTER 2017-12-10 13:00 | Inpatient (IN) | payer SELFPAY ==
[~2017-12-10] VITALS: Ht 162.6 cm; Wt 75.0 kg
[~2017-12-10 13:00] MED LIST changes: +CEPH-460 PO
[2017-12-10 13:09] VITALS: BP 141/86; PULSE 101; RESP 18; TEMP 100.3; O2SAT 99
[2017-12-10] MEDS ORDERED: SODIUM CHLOR 0.9% 1000 ML INJ 400 ML IV ONE (13:29)
[2017-12-10] MEDS ORDERED: SODIUM CHLOR 0.9% 1000 ML INJ 1,000 ML IV ONE ×2 (13:29)
--- NOTE | 2017-12-10 13:56 | PD ---
HPI Chief Complaint: General Weakness Time Seen by Provider: 13:28 Travel History International Travel<30 days: No Contact w/Intl Traveler<30days: No Traveled to known affect area: No History of Present Illness HPI 51 y/o female presents with body aches, chills and general ill feeling with stuffy nose over the past couple of days. Brother states that a friend saw her have had a possible seizure where she was shaking all over. When he was able to get to her she was shaking and then got sleepy afterwards. Patient does not recall event. She states she drinks alcohol but has not drank since yesterday. She states she also used cocaine yesterday. Brother and patient are both poor historian so history is very limited. PFSH Past Medical History Hx Anticoagulant Therapy: No Arthritis: Yes (RA) Anxiety: Yes Heart Rhythm Problems: No Cardiac Catheterization: No Cardiovascular Problems: No High Cholesterol: No Chemotherapy: No Congestive Heart Failure: No Cerebrovascular Accident: Yes Diabetes: No Endocrine: No Headaches: Yes Hepatitis: Yes (Hep C) Heparin Induced Thrombocytopen: No Hypertension: No Musculoskeletal: Yes Neurologic: Yes Respiratory: No Immunizations Current: Yes Migraines: Yes Seizures: No Thyroid Disease: No ?: Not : 3 Para: 3 Past Surgical History Abdominal Surgery: No Cardiac Surgery: No Section: Yes Coronary Artery Bypass Graft: No Ear Surgery: No Eye Surgery: No Genitourinary Surgery: No Gynecologic Surgery: Yes (c sec) Hysterectomy: No Neurologic Surgery: No Oral Surgery: No Thoracic Surgery: Yes (collapsed lung) Other Surgery: Yes (c sec) Family History Family Myocardial Infarction: Yes Social History Alcohol Use: Yes Tobacco Use: Yes (1/2 ppd) Substance Use: Yes (cocaine) Allergies-Medications (Allergen,Severity, Reaction): Coded Allergies: No Known Allergies (Verified Allergy, Unknown, 12/10/17) Reported Meds & Prescriptions Reported Meds & Active Scripts Active Keflex (Cephalexin) 500 Mg Cap 500 Mg PO Q8H Bactrim DS (Sulfamethoxazole-Trimethoprim) 800-160 Mg Tab 1 Tab PO BID Review of Systems ROS Limitations: Poor Historian Physical Exam Exam Limitations: Poor Historian Narrative GENERAL: 51-year-old female in no apparent distress SKIN: Focused skin assessment warm/dry. HEAD: Atraumatic. Normocephalic. EYES: Pupils equal and round. No scleral icterus. No injection or drainage. ENT: No nasal bleeding or discharge. Mucous membranes pink and moist. NECK: Trachea midline. No JVD. no meningeal signs CARDIOVASCULAR: Regular rate and rhythm. No murmur appreciated. RESPIRATORY: No accessory muscle use. Clear to auscultation. Breath sounds equal bilaterally. GASTROINTESTINAL: Abdomen soft, non-tender, nondistended. MUSCULOSKELETAL: No obvious deformities. No clubbing. No cyanosis. No edema. NEUROLOGICAL: Awake and alert to name. No obvious cranial nerve deficits. Motor grossly within normal limits. Slurred speech. Data Data Last Documented VS Vital Signs Date Time Temp Pulse Resp B/P (MAP) Pulse Ox O2 Delivery O2 Flow Rate FiO2 12/10/17 13:09 100.3 101 18 141/86 (104) 99 Orders Orders Electrocardiogram (12/10/17 13:29) Complete Blood Count With Diff (12/10/17 13:29) Comprehensive Metabolic Panel (12/10/17 13:29) Prothrombin Time / Inr (Pt) (12/10/17 13:29) Act Partial Throm Time (Ptt) (12/10/17 13:29) Lactic Acid Sepsis Protocol (12/10/17 13:29) Magnesium (Mg) (12/10/17 13:29) Phosphorus (Po4) (12/10/17 13:29) Urinalysis - C+S If Indicated (12/10/17 13:29) Influenzae A/B Antigen (12/10/17 13:29) Blood Culture (12/10/17 13:29) Chest, Single Ap (12/10/17 13:29) Blood Glucose (12/10/17 13:29) Ecg Monitoring (12/10/17 13:29) Iv Access Insert/Monitor (12/10/17 13:29) Oximetry (12/10/17 13:29) Ct Brain W/O Iv Contrast(Rout) (12/10/17 13:29) Sodium Chlor 0.9% 1000 Ml Inj (Ns 1000 M (12/10/17 13:29) Sodium Chlor 0.9% 1000 Ml Inj (Ns 1000 M (12/10/17 13:29) Sodium Chlor 0.9% 1000 Ml Inj (Ns 1000 M (12/10/17 13:29) Alcohol (Ethanol) (12/10/17 13:29) Drug Screen, Random Urine (12/10/17 13:29) Urine Culture (12/10/17 14:16) Ceftriaxone Inj (Rocephin Inj) (12/10/17 16:00) Admit Order (Ed Use Only) (12/10/17 15:57) Labs Laboratory Tests Test 12/10/17 13:46 12/10/17 14:16 White Blood Count 7.6 TH/MM3 Red Blood Count 5.04 MIL/MM3 Hemoglobin 14.4 GM/DL Hematocrit 41.8 % Mean Corpuscular Volume 82.9 FL Mean Corpuscular Hemoglobin 28.5 PG Mean Corpuscular Hemoglobin Concent 34.3 % Red Cell Distribution Width 14.4 % Platelet Count 269 TH/MM3 Mean Platelet Volume 7.4 FL Neutrophils (%) (Auto) 69.5 % Lymphocytes (%) (Auto) 20.1 % Monocytes (%) (Auto) 7.6 % Eosinophils (%) (Auto) 2.5 % Basophils (%) (Auto) 0.3 % Neutrophils # (Auto) 5.3 TH/MM3 Lymphocytes # (Auto) 1.5 TH/MM3 Monocytes # (Auto) 0.6 TH/MM3 Eosinophils # (Auto) 0.2 TH/MM3 Basophils # (Auto) 0.0 TH/MM3 CBC Comment DIFF FINAL Differential Comment Prothrombin Time 9.9 SEC Prothromb Time International Ratio 1.0 RATIO Activated Partial Thromboplast Time 27.8 SEC Blood Urea Nitrogen 12 MG/DL Creatinine 1.15 MG/DL Random Glucose 131 MG/DL Total Protein 7.8 GM/DL Albumin 3.7 GM/DL Calcium Level 8.5 MG/DL Phosphorus Level 2.7 MG/DL Magnesium Level 2.0 MG/DL Alkaline Phosphatase 83 U/L Aspartate Amino Transf (AST/SGOT) 25 U/L Alanine Aminotransferase (ALT/SGPT) 21 U/L Total Bilirubin 0.3 MG/DL Sodium Level 141 MEQ/L Potassium Level 4.0 MEQ/L Chloride Level 108 MEQ/L Carbon Dioxide Level 25.4 MEQ/L Anion Gap 8 MEQ/L Estimat Glomerular Filtration Rate 50 ML/MIN Lactic Acid Level 0.9 mmol/L Ethyl Alcohol Level LESS THAN 3 MG/DL Urine Color LIGHT-YELLOW Urine Turbidity CLEAR Urine pH 7.5 Urine Specific [place] 1.014 Urine Protein NEG mg/dL Urine Glucose (UA) NEG mg/dL Urine Ketones NEG mg/dL Urine Occult Blood TRACE Urine Nitrite NEG Urine Bilirubin NEG Urine Urobilinogen LESS THAN 2.0 MG/DL Urine Leukocyte Esterase NEG Urine RBC 4 /hpf Urine WBC 1 /hpf Urine Squamous Epithelial Cells 2 /hpf Urine Bacteria RARE /hpf Microscopic Urinalysis Comment CATH-CULTURE IND Urine Opiates Screen NEG Urine Barbiturates Screen NEG Urine Amphetamines Screen NEG Urine Benzodiazepines Screen NEG Urine Cocaine Screen POS Urine Cannabinoids Screen NEG MDM Medical Decision Making Medical Screen Exam Complete: Yes Emergency Medical Condition: Yes Medical Record Reviewed: Yes (Past history confirmed) Interpretation(s) CBC & BMP Diagram 12/10/17 13:46 Total Protein 7.8, Albumin 3.7, Calcium Level 8.5, Phosphorus Level 2.7, Magnesium Level 2.0, Alkaline Phosphatase 83, Aspartate Amino Transf (AST/SGOT) 25, Alanine Aminotransferase (ALT/SGPT) 21, Total Bilirubin 0.3 Last [address] 12/10/17 1329 Signed Impressions: Service Date/Time: Sunday, December 10, 2017 15:20 - CONCLUSION: No acute intracranial findings. Jarrett Patel MD Chest X-Ray 12/10/17 1329 Signed Impressions: Service Date/Time: Sunday, December 10, 2017 13:49 - CONCLUSION: Minimal left basilar atelectasis. No other acute cardiopulmonary disease identified. Jarrett Patel MD Differential Diagnosis Pneumonia, upper respiratory infection, rhabdomyolysis, alcohol withdrawal, drug use, intercranial Narrative Course We will check blood work, imaging, urinalysis, influenza and dose with IV fluids ED workup shows urine tox is positive for cocaine. Question seizure alcohol withdrawal versus cocaine use. Patient without significant emergent findings of infection. Urinalysis shows questionable UTI will dose with Rocephin. Will watch in the hospital overnight. Physician Communication Physician Communication dr stevens agrees to admit Diagnosis Primary Impression: New onset seizure Additional Impressions: UTI (urinary tract infection) Qualified Codes: N39.0 - Urinary tract infection, site not specified Cocaine abuse Admitting Information Admitting Physician Requests: Observation Annie Senior MD December 10, 2017 13:55
[2017-12-10 14:01] LABS: AUTOMATED NEUTROPHIL # 5.3 TH/MM3 (1.8-7.7); BASOPHIL % 0.3 % (0.0-2.0); EOSINOPHIL # 0.2 TH/MM3 (0-0.4); EOSINOPHIL % 2.5 % (0.0-4.0); HEMATOCRIT 41.8 % (35.0-46.0); HEMOGLOBIN 14.4 GM/DL (11.6-15.3); LYMPH % 20.1 % (9.0-44.0); LYMPHOCYTE # 1.5 TH/MM3 (1.0-4.8); MEAN CELL VOLUME 82.9 FL (80.0-100.0); MEAN CORPUSCULAR HEMOGLOBIN 28.5 PG (27.0-34.0); MEAN CORPUSCULAR HGB CONC 34.3 % (32.0-36.0); MEAN PLATELET VOLUME 7.4 FL (7.0-11.0); MONO % 7.6 % (0.0-8.0); MONOCYTE # 0.6 TH/MM3 (0-0.9); NEUT % 69.5 % (16.0-70.0); PLATELET COUNT 269 TH/MM3 (150-450); RED BLOOD COUNT 5.04 MIL/MM3 (4.00-5.30); RED CELL DISTRIBUTION WIDTH 14.4 % (11.6-17.2); WHITE BLOOD COUNT 7.6 TH/MM3 (4.0-11.0)
[2017-12-10 14:12] LABS: PROTHROMBIN TIME - PATIENT 9.9 SEC (9.8-11.6)
[2017-12-10 14:17] LABS: ALBUMIN 3.7 GM/DL (3.4-5.0); ALT (GPT) 21 U/L (10-53); AST (GOT) 25 U/L (15-37); BICARBONATE 25.4 MEQ/L (21.0-32.0); BLOOD UREA NITROGEN 12 MG/DL (7-18); CALCIUM 8.5 MG/DL (8.5-10.1); CHLORIDE 108 MEQ/L (98-107); CREATININE 1.15 MG/DL (0.50-1.00); GLOMERULAR FILTRATION RATE 50 ML/MIN (>89); GLUCOSE,RANDOM 131 MG/DL (74-106); PHOSPHORUS 2.7 MG/DL (2.5-4.9); SODIUM (NA) 141 MEQ/L (136-145)
[2017-12-10 14:20] LABS: ALKALINE PHOSPHATASE 83 U/L (45-117); TOTAL BILIRUBIN ADULT 0.3 MG/DL (0.2-1.0); TOTAL PROTEIN 7.8 GM/DL (6.4-8.2)
--- NOTE | 2017-12-10 14:22 | RADRPT ---
EXAM DATE/TIME: 12/10/2017 13:49 [facility] COMPARISON: CHEST SINGLE AP, August 03, 2017, 14:52. INDICATIONS : Fever. MEDICAL HISTORY : Stroke. SURGICAL HISTORY : None. ENCOUNTER: Initial ACUITY: 1 day PAIN SCORE: 0/10 LOCATION: Bilateral chest FINDINGS: Single AP view of the chest. Mild left lower lung zone atelectasis. Lungs otherwise clear. Cardiomedi astinal silhouette within normal limits. No evidence of pleural effusion or pneumothorax. CONCLUSION: Minimal left basilar atelectasis. No other acute cardiopulmonary disease identified. Jarrett Patel MD on December 10, 2017 at 14:14 Board Certified Radiologist. This report was verified electronically.
[2017-12-10 14:56] LABS: BACTERIA, URINE RARE /hpf; BILIRUBIN, URINE NEG (NEG); BLOOD, URINE TRACE (NEG); GLUCOSE,URINE NEG (NEG); KETONE, URINE NEG (NEG); NITRITE,URINE NEG (NEG); PH, URINE 7.5 (5.0-8.5); SQUAMOUS EPITHELIAL CELL URINE 2 /hpf (0-5); URINE COLOR LIGHT-YELLOW (YELLW/STRAW); URINE LEUKOCYTE ESTERASE NEG (NEG)
--- NOTE | 2017-12-10 15:46 | RADRPT ---
EXAM DATE/TIME: 12/10/2017 15:20 [facility] COMPARISON: CT BRAIN W/O CONTRAST, October 01, 2017, 11:44. INDICATIONS : Cephalgia. RADIATION DOSE: 37.07 CTDIvol (mGy) MEDICAL HISTORY : Stroke. Rheumatoid arthritis. Hepatitis C. SURGICAL HISTORY : None. ENCOUNTER: Initial ACUITY: 1 day PAIN SCALE: 5/10 LOCATION: Bilateral frontal TECHNIQUE: Multiple contiguous axial images were obtained of the head. Using automated exposure control and adj ustment of the mA and/or kV according to patient size, radiation dose was kept as low as reasonably a chievable to obtain optimal diagnostic quality images. DICOM format image data is available electro nically for review and comparison. FINDINGS: CEREBRUM: The ventricles are normal for age. No evidence of midline shift, mass lesion, hemorrhage or acute in farction. No extra-axial fluid collections are seen. POSTERIOR FOSSA: The cerebellum and brainstem are intact. The 4th ventricle is midline. The cerebellopontine angle i s unremarkable. EXTRACRANIAL: The visualized portion of the orbits is intact. SKULL: The calvaria is intact. No evidence of skull fracture. CONCLUSION: No acute intracranial findings. Jarrett Patel MD on December 10, 2017 at 15:44 Board Certified Radiologist. This report was verified electronically.
[2017-12-10] MEDS ORDERED: SODIUM CHLOR 0.9% 1000 ML INJ 1,000 ML IV SCH (15:57)
[2017-12-10] MEDS ORDERED: LORazepam 2 MG/ML VIAL IV PUSH PRN ×5 (16:00→17:45)
[2017-12-10] MEDS ORDERED: SODIUM CHLORIDE 0.9% FLUSH 10 ML FLUSH IV FLUSH PRN (16:00)
[2017-12-10] MEDS ORDERED: cefTRIAXone INJ 1,000 MG in SODIUM CHLORIDE 0.9% INJ 100 ML IV ONE (16:00)
[2017-12-10] MEDS ORDERED: ONDANSETRON HCL 4 MG/2 ML VIAL IV PUSH PRN (16:00)
[2017-12-10 16:06] VITALS: BP 159/88; PULSE 78; RESP 20; O2SAT 98
[2017-12-10] MEDS ORDERED: LORazepam 2 MG TAB PO PRN (17:45)
[2017-12-10] MEDS ORDERED: THIAMINE HCL 100 MG TAB PO ONE (17:45)
[2017-12-10] MEDS ORDERED: FOLIC ACID 1 MG TAB PO ONE (17:45)
[2017-12-10] MEDS ORDERED: FLUMAZENIL 0.5 MG/5 ML VIAL IV PUSH PRN (17:45)
[2017-12-10] MEDS ORDERED: LORazepam 1 MG TAB PO PRN (17:45)
[2017-12-10] MEDS ORDERED: VANCOMYCIN INJ 1,000 MG in SODIUM CHLOR 0.9% 250 ML INJ 250 ML IV SCH (17:45)
[2017-12-10] MEDS ORDERED: MULTIVITAMIN TAB PO ONE (17:45)
--- NOTE | 2017-12-10 17:47 | HHI.HP ---
HPI Service [facility] Primary Care Physician No Primary Care Physician Admission Diagnosis new onset seizure Diagnoses: Travel History International Travel<30 Days: No Contact w/Intl Traveler <30 Da: No Traveled to Known Affected Are: No Sepsis Criteria SIRS Criteria (2 or more): Heart rate over 90 History of Present Illness 51 year old female with history of substance abuse, HCV, and MRSA brought to the ED after having an apparent seizure witnessed by her brother. Patient is a poor historian and part of the history was obtained through the ED physician who spoke to the brother when he was present. The patient is somnolent but arousable. She denies having a seizure and states she was shaking because she was feeling cold but also states she doesn't recall the episode and admits to feeling confused. She reports for months she has been feeling "lousy. " She is under a lot of stress which she attributes to paying her bills as she fears being homeless again and also she has a daughter doing IV drugs while and she has been trying to get her help. The patient endorses feeling depressed but denies suicidal ideations. She states she is not a daily drinker but when she does she binges in order to cope. Her last drink was two days ago in which she drank a small bottle of "brown liquor" within 30 minutes. The same day she states she also snorted cocaine. She reports redness and pain in her elbow but cannot tell me how long it's been there nor if she experienced any trauma or fell. She denies headache, visual disturbances, abdominal pain, nausea , or vomiting. She states she has intermittent swelling, pain, and redness over her hands, knees, and ankles associated. She has never been diagnosed with RA. She states she has never been diagnosed with any medical problems because she always leaves the hospital AMA and she cannot afford to see a doctor as an outpatient. She also endorses recent fecal incontinence and black stool about a month ago. She states she vomited blood a few months ago. She has not been worked up for any GI complaints. She denies chest pain, shortness of breath, nausea, or vomiting. Review of Systems Constitutional: COMPLAINS OF: Fever, Chills, DENIES: Dizziness Eyes: DENIES: Blurred vision Ears, nose, mouth, throat: COMPLAINS OF: Running Nose Respiratory: DENIES: Cough, Wheezing, Shortness of breath Cardiovascular: DENIES: Chest pain, Palpitations, Syncope Gastrointestinal: COMPLAINS OF: Black stools, DENIES: Abdominal pain, Bloody stools, Constipation, Diarrhea, Nausea, Vomiting Genitourinary: DENIES: Urgency, Dysuria Musculoskeletal: COMPLAINS OF: Joint pain Neurologic: COMPLAINS OF: Headache, DENIES: Localized weakness, Paresthesias Psychiatric: COMPLAINS OF: Confusion, Depression Past Family Social History Past Medical History Tobacco abuse Substance abuse History of pneumothorax Past Surgical History Chest tube for pneumothorax Reported Medications None Allergies: Coded Allergies: No Known Allergies (Verified Allergy, Unknown, 12/10/17) Active Ordered Medications Ceftriaxone Sodium 1000 mg/ Sodium Chloride 100 ml @ 200 mls/hr ONCE ONCE IV Last administered on 12/10/17at 16:03; Admin Dose 200 MLS/HR; Start 12/10/17 at 16: 00; Stop 12/10/17 at 16:29; Status DC Flumazenil (Romazicon Inj) 0.2 mg Q1M PRN IV PUSH; Start 12/10/17 at 17:45 Folic Acid (Folate) 1 mg DAILY PO; Start 12/11/17 at 09:00 Folic Acid (Folate) 1 mg ONCE ONCE PO; Start 12/10/17 at 17:45; Stop 12/10/17 at 17:46; Status DC Influenza Virus Vaccine (Flu (Quadrivalent) Vaccine Inj) 0.5 ml ONCE ONCE IM; Start 12/11/17 at 10:00; Stop 12/11/17 at 10:01 Lorazepam (Ativan Inj) 1 mg Q4H PRN IV PUSH; Start 12/10/17 at 17:45 Lorazepam (Ativan Inj) 2 mg Q15M PRN IV PUSH; Start 12/10/17 at 17:45 Lorazepam (Ativan Inj) 2 mg Q1H PRN IV PUSH; Start 12/10/17 at 17:45 Lorazepam (Ativan Inj) 2 mg Q2H PRN IV PUSH; Start 12/10/17 at 17:45 Lorazepam (Ativan Inj) 2 mg UNSCH PRN IV PUSH; Start 12/10/17 at 16:00 Lorazepam (Ativan) 1 mg Q4H PRN PO; Start 12/10/17 at 17:45 Lorazepam (Ativan) 2 mg Q2H PRN PO; Start 12/10/17 at 17:45 Miscellaneous Information ([facility] Ordered Lab Info) SPECIFIC LAB TO BE DRAWN: DATE TO... ONCE ONCE .XX; Start 12/12/17 at 23:45; Stop 12/12/17 at 23:46 Multivitamins (Theragran) 1 tab DAILY PO; Start 12/11/17 at 09:00 Multivitamins (Theragran) 1 tab ONCE ONCE PO; Start 12/10/17 at 17:45; Stop 12/10 at 17:47; Status DC Ondansetron HCl (Zofran Inj) 4 mg Q6H PRN IV PUSH; Start 12/10/17 at 16:00 Pharmacy Profile Note ml @ 0 mls/hr UNSCH OTHER; Start 12/10/17 at 18:00 Sodium Chloride 400 ml @ 1,000 mls/hr Q24M ONCE IV Last administered on at 13:46; Admin Dose 1,000 MLS/HR; Start 12/10/17 at 13:29; Stop 12/10/17 at 13: 52; Status DC Sodium Chloride 1,000 ml @ 75 mls/hr [id number] IV Last administered on 12/10/17at 16:04; Admin Dose 75 MLS/HR; Start 12/10/17 at 15:57 Sodium Chloride 1,000 ml @ 1,000 mls/hr Q1H ONCE IV Last administered on at 13:46; Admin Dose 1,000 MLS/HR; Start 12/10/17 at 13:29; Stop 12/10/17 at 14: 28; Status DC Sodium Chloride 1,000 ml @ 1,000 mls/hr Q1H ONCE IV Last administered on at 13:46; Admin Dose 1,000 MLS/HR; Start 12/10/17 at 13:29; Stop 12/10/17 at 14: 28; Status DC Sodium Chloride (NS Flush) 2 ml BID IV FLUSH; Start 12/10/17 at 21:00 Sodium Chloride (NS Flush) 2 ml UNSCH PRN IV FLUSH; Start 12/10/17 at 16:00 Thiamine HCl (Vitamin B1) 100 mg DAILY PO; Start 12/11/17 at 09:00 Thiamine HCl (Vitamin B1) 100 mg ONCE ONCE PO; Start 12/10/17 at 17:45; Stop 12/10/17 at 17:48; Status DC Vancomycin HCl 1000 mg/Sodium Chloride 250 ml @ 250 mls/hr Q12H IV; Start at 17:45; Status UNV Vancomycin HCl 1000 mg/Sodium Chloride 250 ml @ 250 mls/hr Q18H IV; Start at 18:00 Family History Mother with heart disease, rheumatoid arthritis Family history of diabetes Social History Lives with brother in a home EtOH: not a daily drinker but states she drinks a small bottle of liquor when she does drink about once a week Tobacco: 1 PPD x >30 years Illicit drugs: cocaine, denies IVDU Physical Exam Vital Signs Vital Signs Date Time Temp Pulse Resp B/P (MAP) Pulse Ox O2 Delivery O2 Flow Rate FiO2 12/10/17 16:06 78 20 159/88 (111) 98 Room Air 12/10/17 13:09 100.3 101 18 141/86 (104) 99 Physical Exam GENERAL: Disheveled female laying in bed in no apparent distress. SKIN: Very warm to touch. HEENT: Atraumatic. Normocephalic. No temporal or scalp tenderness. Pupils equal round and reactive. Extraocular motions intact. No scleral icterus. Bilateral conjunctival injection. Nose without bleeding, purulent drainage or septal hematoma. Throat without erythema, tonsillar hypertrophy or exudate. Uvula midline. Airway patent. NECK: Trachea midline. No JVD or lymphadenopathy. Supple, nontender, no meningeal signs. CARDIOVASCULAR: Regular rate and rhythm without murmurs, gallops, or rubs. RESPIRATORY: Clear to auscultation. Breath sounds equal bilaterally. No wheezes , rales, or rhonchi. GASTROINTESTINAL: Abdomen soft, nontender, nondistended. No hepatosplenomegaly or palpable masses. No guarding. MUSCULOSKELETAL: Right elbow erythematous and warm to touch with mild amount of swelling; olecranon tender to palpation. NEUROLOGICAL: Somnolent but arousable. Cranial nerves II through XII intact. Strength testing difficult due to lack of patient effort. Slightly slurred and slow. Laboratory Laboratory Tests Test 12/10/17 13:46 12/10/17 14:16 White Blood Count 7.6 Red Blood Count 5.04 Hemoglobin 14.4 Hematocrit 41.8 Mean Corpuscular Volume 82.9 Mean Corpuscular Hemoglobin 28.5 Mean Corpuscular Hemoglobin Concent 34.3 Red Cell Distribution Width 14.4 Platelet Count 269 Mean Platelet Volume 7.4 Neutrophils (%) (Auto) 69.5 Lymphocytes (%) (Auto) 20.1 Monocytes (%) (Auto) 7.6 Eosinophils (%) (Auto) 2.5 Basophils (%) (Auto) 0.3 Neutrophils # (Auto) 5.3 Lymphocytes # (Auto) 1.5 Monocytes # (Auto) 0.6 Eosinophils # (Auto) 0.2 Basophils # (Auto) 0.0 CBC Comment DIFF FINAL Differential Comment Prothrombin Time 9.9 Prothromb Time International Ratio 1.0 Activated Partial Thromboplast Time 27.8 Blood Urea Nitrogen 12 Creatinine 1.15 Random Glucose 131 Total Protein 7.8 Albumin 3.7 Calcium Level 8.5 Phosphorus Level 2.7 Magnesium Level 2.0 Alkaline Phosphatase 83 Aspartate Amino Transf (AST/SGOT) 25 Alanine Aminotransferase (ALT/SGPT) 21 Total Bilirubin 0.3 Sodium Level 141 Potassium Level 4.0 Chloride Level 108 Carbon Dioxide Level 25.4 Anion Gap 8 Estimat Glomerular Filtration Rate 50 Lactic Acid Level 0.9 Ethyl Alcohol Level LESS THAN 3 Urine Color LIGHT-YELLOW Urine Turbidity CLEAR Urine pH 7.5 Urine Specific [place] 1.014 Urine Protein NEG Urine Glucose (UA) NEG Urine Ketones NEG Urine Occult Blood TRACE Urine Nitrite NEG Urine Bilirubin NEG Urine Urobilinogen LESS THAN 2.0 Urine Leukocyte Esterase NEG Urine RBC 4 Urine WBC 1 Urine Squamous Epithelial Cells 2 Urine Bacteria RARE Microscopic Urinalysis Comment CATH-CULTURE IND Urine Opiates Screen NEG Urine Barbiturates Screen NEG Urine Amphetamines Screen NEG Urine Benzodiazepines Screen NEG Urine Cocaine Screen POS Urine Cannabinoids Screen NEG Date/Time Source Procedure Growth Status 12/10/17 13:46 Blood Peripheral Aerobic Blood Culture Pending Received 12/10/17 13:46 Blood Peripheral Anaerobic Blood Culture Pending Received 12/10/17 13:46 Nasal Aspirate Influenza Types A,B Antigen (KATHARINA) - Final NEGATIVE FOR FLU A AND B ANTIGEN.... Complete 12/10/17 14:16 Urine Catheterized Urine Urine Culture Pending Received Result Diagram: 12/10/17 1346 12/10/[address] 12/10/17 1329 Signed Impressions: Service Date/Time: Sunday, December 10, 2017 15:20 - CONCLUSION: No acute intracranial findings. Jarrett Patel MD Chest X-Ray 12/10/17 1329 Signed Impressions: Service Date/Time: Sunday, December 10, 2017 13:49 - CONCLUSION: Minimal left basilar atelectasis. No other acute cardiopulmonary disease identified. MD Brianna Eldridge VTE Risk Assessment [place] VTE Risk Assessment: Mod/High Risk (score >= 2) VTE Pharm Contraindication: Endorsing melena Caprini Risk Assessment Model Point Value = 1 Point Value = 2 Point Value = 3 Point Value = 5 Age 41-60 Minor surgery BMI > 25 kg/m2 Swollen legs Varicose veins or History of unexplained or recurrent spontaneous Oral contraceptives or hormone replacement Sepsis (< 1 month) Serious lung disease, including pneumonia (< 1 month) Abnormal pulmonary function Acute myocardial infarction Congestive heart failure (< 1 month) History of inflammatory bowel disease Medical patient at bed rest Age 61-74 Arthroscopic surgery Major open surgery (> 45 min) Laparoscopic surgery (> 45 min) Malignancy Confined to bed (> 72 hours) Immobilizing plaster cast Central venous access Age >= 75 History of VTE Family history of VTE Factor V Leiden Prothrombin [id number] Lupus anticoagulant Anticardiolipin antibodies Elevated serum homocysteine Heparin-induced thrombocytopenia Other congenital or acquired thrombophilia Stroke (< 1 month) Elective arthroplasty Hip, pelvis, or leg fracture Acute spinal cord injury (< 1 month) Prophylaxis Regimen Total Risk Factor Score Risk Level Prophylaxis Regimen 0-1 Low Early ambulation 2 Moderate Order ONE of the following: *Sequential Compression Device (SCD) *Heparin 5000 units SQ BID 3-4 Higher Order ONE of the following medications: *Heparin 5000 units SQ TID *Enoxaparin/Lovenox 40 mg SQ daily (WT < 150 kg, CrCl > 30 mL/min) *Enoxaparin/Lovenox 30 mg SQ daily (WT < 150 kg, CrCl > 10-29 mL/min) *Enoxaparin/Lovenox 30 mg SQ BID (WT < 150 kg, CrCl > 30 mL/min) AND/OR *Sequential Compression Device (SCD) 5 or more Highest Order ONE of the following medications: *Heparin 5000 units SQ TID (Preferred with Epidurals) *Enoxaparin/Lovenox 40 mg SQ daily (WT < 150 kg, CrCl > 30 mL/min) *Enoxaparin/Lovenox 30 mg SQ daily (WT < 150 kg, CrCl > 10-29 mL/min) *Enoxaparin/Lovenox 30 mg SQ BID (WT < 150 kg, CrCl > 30 mL/min) AND *Sequential Compression Device (SCD) Assessment and Plan Assessment and Plan 51 YOWF with history of substance abuse, tobacco abuse, and MRSA brought to the ED after having an apparent witnessed seizure. She is also found to have R elbow cellulitis with low-grade fever. 1. ?Seizure - Shaking witnessed by brother followed by confusion, ?substance-induced - CT head negative - Check EEG - Electrolytes WNL - UDS positive for cocaine - EtOH level negative - Check prolactin level - Consult neurology for further eval - Seizure precautions - Ativan PRN 2. R elbow cellulitis - Pt with pain, redness, and swelling over olecranon but since she is a poor historian and possibly had a seizure will obtain XR - History of MRSA so cover with IV vancomycin and can deescalate antibiotics if improvement seen - Blood cultures pending - Lactic acid negative, no leukocytosis - Tachycardic and low-grade fever of 100.3 - Will also check rheumatoid factor given patient's constellation of symptoms and history of joint erythema and swelling 3. Tobacco abuse - Counseled on cessation - Nicotine patch if desired 4. EtOH abuse - [facility] protocol - Rally pack 5. +UDS for cocaine - Counseled on cessation DVT prophylaxis: Hold for now given possible recent melena, CBC WNL, check Hemoccult Code Status FULL Discussed Condition With Dr. Senior and the patient Chiara Madera MD December 10, 2017 17:47
[2017-12-10] MEDS ORDERED: Vancomycin Consult Pharmacy 1 EA OTHER SCH (18:00)
[2017-12-10 18:06] VITALS: BP 172/82; PULSE 96; RESP 16; TEMP 100; O2SAT 94
[2017-12-10] MEDS ORDERED: ACETAMINOPHEN/HYDROcodone 325 MG/10 MG TAB PO PRN (18:45)
[2017-12-10] MEDS ORDERED: ACETAMINOPHEN/HYDROcodone 325 MG/5 MG TAB PO PRN (18:45)
[2017-12-10] MEDS ORDERED: NICOTINE 21 MG/24 HR PATCH T-DERMAL PRN (18:45)
--- NOTE | 2017-12-10 18:57 | RADRPT ---
EXAM DATE/TIME: 12/10/2017 17:43 [facility] COMPARISON: No previous studies available for comparison. INDICATIONS : Right elbow pain. MEDICAL HISTORY : None. SURGICAL HISTORY : None. ENCOUNTER: Initial ACUITY: 1 day PAIN SCORE: Non-responsive. LOCATION: Right elbow FINDINGS: 2 views of the right elbow. Alignment within normal limits. No evidence of fracture. No evidence of j oint narrowing. No evidence of joint effusion. CONCLUSION: Right elbow series within normal limits. Jarrett Patel MD on December 10, 2017 at 18:55 Board Certified Radiologist. This report was verified electronically.
[2017-12-10 19:07] LABS: RHEUMATOID FACTOR SCREEN NEGATIVE (NEGATIVE)
[2017-12-10] MEDS: VANCOMYCIN 1,000 MG/NS 250 ML IV SCH ×2 (19:28)
[2017-12-10 19:58] VITALS: BP 162/80; PULSE 96; RESP 18; TEMP 99.1; O2SAT 94
[2017-12-10] MEDS: SODIUM CHLORIDE 0.9% FLUSH 10 ML FLUSH IV FLUSH SCH (21:00)
[2017-12-10 21:09] VITALS: PULSE 94
[2017-12-10] MEDS: SODIUM CHLOR 0.9% 1000 ML INJ 1,000 ML IV SCH (21:32)
[2017-12-10] MEDS: AMPICILLIN INJ 2,000 MG in SODIUM CHLORIDE 0.9% INJ 100 ML IV SCH (21:38)
[2017-12-10] MEDS ORDERED: VANCOMYCIN 500 MG/NS 100 ML IV ONE ×2 (22:00)
--- NOTE | 2017-12-10 23:21 | MB ---
cc: Diego Raymundo MD, David J MD DATE: 12/10/2017 HISTORY OF PRESENT ILLNESS: A 51-year-old right-handed woman with a history of hepatitis C, a stroke she says years ago, left-sided weakness which resolved approximately 3 years ago. Some left breast mass recently. She has been achy all over. She has had an ache in the back of her headache for the last month. She was recently in the emergency room with an abscess in her left anterior martínez. She was given some antibiotics. She was admitted today with chills, general ill feeling, body aches, possible seizure or shaking all over. She gets sleepy afterwards. She does not remember anything like that although is not a great historian. PAST MEDICAL HISTORY: Rheumatoid arthritis, anxiety. Other as above. ALLERGIES: NO KNOWN DRUG ALLERGIES. MEDICATIONS: Keflex and Bactrim at home. SOCIAL HISTORY: She is a smoker. She tells me she is not a drinker. Does do cocaine, however. FAMILY HISTORY: Negative for cancer , seizure or stroke. REVIEW OF SYSTEMS: She denied any history of hypertension, diabetes, hypercholesterolemia, VA, CABG, stent, angioplasty, A-Fib, Coumadin, renal or pulmonary disease, thyroid disease, lupus, ulcer, cancer, seizure. PHYSICAL EXAMINATION: VITAL SIGNS: T-max 100.3, 96, 18, 160/80. NECK: There were no carotid bruits. HEART: Regular rhythm. I did not detect a murmur. NEUROLOGIC: Pupils are equal. Visual devine are full. Extraocular movements intact without nystagmus. Face is symmetric with normal sensation. Tongue was midline. There is no drift. She had normal strength in upper and lower extremities bilaterally, limited somewhat because she is just achy all over. Toes are downgoing bilaterally. Pinprick is intact throughout upper and lower extremities and face bilaterally. She is not ataxic on [id number]. Speech is fluent. She is not aphasic. She wakes up and can stay awake. She is alert and oriented x3 at that time, but does fall back to sleep quickly, says she is very tired. LABORATORY DATA: CBC is normal. Rheumatoid factor is negative. Urine drug screen positive for cocaine. UA was essentially normal. Coags are normal. Basic metabolic profile is essentially normal. Glucose normal. LFTs, alkaline phosphatase normal. Albumin is normal. CBC is normal. IMAGING STUDIES A chest x-ray showed some left atelectasis. CAT scan of her brain is negative. She had an elbow x-ray in the right elbow that was normal. CARDIOLOGY STUDIES: EKG shows sinus rhythm. IMPRESSION: She says she is tender on her temples, although I am not quite sure. She says she is tender all over, if she as any more tender there that anywhere else. We will check a CRP and sedimentation rate. I do see on the CT white matter change and maybe a small lacunar type infarct on the left caudate region. We will check an electroencephalogram and an MRI with the possibility of seizures versus rigors. She has had some blood cultures drawn and she had a wound culture on 10/12/2017 that was MRSA. I think overall probably this is not indicative of a primary neurological problem here however and there is no evidence for meningitis. I note her neck was supple. MD LEONORA Mccarthy/ , 10:52 PM , 11:20 PM
[2017-12-11] VITALS (7 sets, daily range): BP systolic 140–171; BP diastolic 59–94; PULSE 83–101; RESP 16–18; TEMP 98–98.7; O2SAT 93–98
[2017-12-11] MEDS: AMPICILLIN INJ 2,000 MG in SODIUM CHLORIDE 0.9% INJ 100 ML IV SCH ×4 (00:56→14:04)
[2017-12-11] MEDS ORDERED: cefTRIAXone INJ 2,000 MG in SODIUM CHLORIDE 0.9% INJ 100 ML IV SCH (04:00)
[2017-12-11] MEDS ORDERED: GADODIAMIDE PF 287 MG/ML 20 ML VIAL (for RAD MRI) IVCONTRAST ONE (07:53)
--- NOTE | 2017-12-11 08:13 | RADRPT ---
EXAM DATE/TIME: 12/11/2017 07:36 [facility] COMPARISON: CT BRAIN W/O CONTRAST, December 10, 2017, 15:20. INDICATIONS : Cephalgia. Possible seizures. CONTRAST: 16 cc Omniscan (gadodiamide) IV MEDICAL HISTORY : Cerebrovascular disease. Rheumatoid arthritis. SURGICAL HISTORY : None. ENCOUNTER: Initial ACUITY: 1 day PAIN SCORE: 0/10 LOCATION: cranial TECHNIQUE: Multiplanar, multisequence MRI of the brain was performed both prior to and following the administrat ion of paramagnetic contrast. FINDINGS: CEREBRUM: The ventricles are normal. No midline shift, mass lesion, hemorrhage or acute infarction. No extraa xial fluid collections are seen. The pituitary gland and suprasellar cistern are normal in configura tion. WHITE MATTER: There is moderate to severe periventricular and subcortical white matter signal change bilaterally, m ildly asymmetrically greater on the right than left. POSTERIOR FOSSA: The cerebellum and brainstem demonstrate no acute finding. The 4th ventricle is midline. The cerebel lopontine angle is unremarkable. The cerebellar tonsils are normal in position. DIFFUSION IMAGING: No focal areas of restricted diffusion are seen. No evidence of acute infarction. EXTRACRANIAL: The visualized sinuses are clear. 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 POST-CONTRAST: No abnormal areas of parenchymal or dural enhancement. No evidence of blood-brain barrier breakdown. CONCLUSION: 1. No acute intracranial abnormality is identified to explain the clinical symptoms. 2. There is moderate to severe periventricular and subcortical white matter signal change bilaterally . This is greater than typically seen in a patient of this age. While it could reflect chronic microv ascular ischemic change should also give consideration to vascular disorders or demyelinating conditi ons as the cause. 3. 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 This is a nonspecific finding but can be seen following trauma, surgery, or with cocaine use. Marv Mtz MD on December 11, 2017 at 8:04 Board Certified Radiologist. This report was verified electronically.
[2017-12-11] MEDS: SODIUM CHLORIDE 0.9% FLUSH 10 ML FLUSH IV FLUSH SCH ×2 (09:00→21:00)
[2017-12-11 09:20] LABS: AUTOMATED NEUTROPHIL # 4.3 TH/MM3 (1.8-7.7); BASOPHIL % 0.6 % (0.0-2.0); EOSINOPHIL # 0.1 TH/MM3 (0-0.4); EOSINOPHIL % 1.5 % (0.0-4.0); HEMATOCRIT 39.3 % (35.0-46.0); HEMOGLOBIN 13.5 GM/DL (11.6-15.3); LYMPH % 30.9 % (9.0-44.0); LYMPHOCYTE # 2.2 TH/MM3 (1.0-4.8); MEAN CELL VOLUME 83.2 FL (80.0-100.0); MEAN CORPUSCULAR HEMOGLOBIN 28.5 PG (27.0-34.0); MEAN CORPUSCULAR HGB CONC 34.3 % (32.0-36.0); MEAN PLATELET VOLUME 7.7 FL (7.0-11.0); MONO % 8.1 % (0.0-8.0); MONOCYTE # 0.6 TH/MM3 (0-0.9); NEUT % 58.9 % (16.0-70.0); PLATELET COUNT 230 TH/MM3 (150-450); RED BLOOD COUNT 4.73 MIL/MM3 (4.00-5.30); RED CELL DISTRIBUTION WIDTH 14.4 % (11.6-17.2); WHITE BLOOD COUNT 7.3 TH/MM3 (4.0-11.0)
--- NOTE | 2017-12-11 09:33 | HHI.PR ---
Objective Vital Signs Date Time Temp Pulse Resp B/P (MAP) Pulse Ox O2 Delivery O2 Flow Rate FiO2 12/11/17 04:03 98.4 83 17 145/73 (97) 94 12/11/17 03:06 89 12/11/17 00:35 98.5 85 18 142/91 (108) 94 12/10/17 23:26 21 12/10/17 21:09 94 12/10/17 19:58 99.1 96 18 162/80 (107) 94 12/10/17 18:06 100.0 96 16 172/82 (112) 94 12/10/17 16:06 78 20 159/88 (111) 98 Room Air 12/10/17 13:09 100.3 101 18 141/86 (104) 99 I/O 12/10/17 12/10/17 12/10/17 12/11/17 12/11/17 12/11/17 07:00 15:00 23:00 07:00 15:00 23:00 # Voids 2 Result Diagram: 12/11/17 0840 12/10/17 1346 Objective Remarks feels better no glass now alert awake still stiffon movements Assessment and Plan Assessment and Plan imp mri neg lab pend ok neurowise fu labs eeg dc cocaine Diego Raymundo MD December 11, 2017 09:33
[2017-12-11 09:40] LABS: BICARBONATE 25.4 MEQ/L (21.0-32.0); C-REACTIVE PROTEIN 0.99 MG/DL (0.00-0.30); CALCIUM 7.7 MG/DL (8.5-10.1); CREATININE 0.65 MG/DL (0.50-1.00)
[2017-12-11] MEDS: MULTIVITAMIN TAB PO SCH (09:45)
[2017-12-11] MEDS: FOLIC ACID 1 MG TAB PO SCH (09:45)
[2017-12-11] MEDS: THIAMINE HCL 100 MG TAB PO SCH (09:45)
[2017-12-11] MEDS ORDERED: INFLUENZA VIRUS VACCINE (QUADRIVALENT) 0.5 ML SYR IM ONE (10:00)
[2017-12-11 10:06] LABS: FREE T4 0.84 NG/DL (0.76-1.46)
[2017-12-11] MEDS: SODIUM CHLOR 0.9% 1000 ML INJ 1,000 ML IV SCH (10:52)
[2017-12-11] MEDS: VANCOMYCIN 1,000 MG/NS 250 ML IV SCH ×2 (12:02)
--- NOTE | 2017-12-11 13:09 | EKG ---
Date Performed: 12/10/2017 Time Performed: 13:40:10 PTAGE: 51 years EKG: Sinus rhythm NORMAL ECG PREVIOUS TRACING : 08/03/2017 21.24 Since prior tracing, previously seen nonspecific ST changes have improved. DOCTOR: Amari Wallace Interpretating Date/Time 12/11/2017 13:07:47
--- NOTE | 2017-12-11 13:10 | MG ---
cc: Diego Raymundo MD EEG NUMBER: [id number] INDICATION: Aches and pains, possible seizure. DESCRIPTION: Recording overall is synchronous and symmetric. The entire recording is during stage II sleep, which is synchronous and symmetric. No epileptiform or seizure activity is noted. There were no hemisphere asymmetries. Photic stimulation was performed without significant posterior driving. Hyperventilation was not performed. The patient is noted to snore. IMPRESSION: Normal stage II sleep electroencephalogram. No evidence for a focal or diffuse abnormality. Diego Raymundo MD DJM/TL , 01:00 PM , 01:09 PM
--- NOTE | 2017-12-11 14:25 | HHI.PR ---
Subjective Remarks Follow-up for probable seizure activity, cocaine abuse, right elbow cellulitis. Patient is currently doing well. No seizure activities overnight. No fever or chills. Objective Vitals Vital Signs Date Time Temp Pulse Resp B/P (MAP) Pulse Ox O2 Delivery O2 Flow Rate FiO2 12/11/17 12:59 98.7 91 16 171/94 (119) 98 12/11/17 04:03 98.4 83 17 145/73 (97) 94 12/11/17 03:06 89 12/11/17 00:35 98.5 85 18 142/91 (108) 94 12/10/17 23:26 21 12/10/17 21:09 94 12/10/17 19:58 99.1 96 18 162/80 (107) 94 12/10/17 18:06 100.0 96 16 172/82 (112) 94 12/10/17 16:06 78 20 159/88 (111) 98 Room Air I/O 12/10/17 12/10/17 12/10/17 12/11/17 12/11/17 12/11/17 07:00 15:00 23:00 07:00 15:00 23:00 # Voids 2 Result Diagram: 12/11/17 0840 12/11/17 0840 Imaging Last Impressions Brain MRI 12/11/172131 Signed Impressions: Service Date/Time: Monday, December 11, 2017 07:36 - CONCLUSION: 1. No acute intracranial abnormality is identified to explain the clinical symptoms. 2. There is moderate to severe periventricular and subcortical white matter signal change bilaterally. This is greater than typically seen in a patient of this age. While it could reflect chronic microvascular ischemic change should also give consideration to vascular disorders or demyelinating conditions as the cause. 3. 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 This is a nonspecific finding but can be seen following trauma, surgery, or with cocaine use. Marv Mtz MD Head CT 12/10/17 [id number] Signed Impressions: Service Date/Time: Sunday, December 10, 2017 15:20 - CONCLUSION: No acute intracranial findings. Jarrett Patel MD Chest X-Ray 12/10/17 [id number] Signed Impressions: Service Date/Time: Sunday, December 10, 2017 13:49 - CONCLUSION: Minimal left basilar atelectasis. No other acute cardiopulmonary disease identified. Jarrett Patel MD Elbow X-Ray 12/10/17 0000 Signed Impressions: Service Date/Time: Sunday, December 10, 2017 17:43 - CONCLUSION: Right elbow series within normal limits. Jarrett Patel MD Objective Remarks GENERAL: Alert, NAD. SKIN: Warm and dry.Bilateral elbow appears normal. No erythema, swelling. HEAD: Normocephalic. EYES: No scleral icterus. No injection or drainage. NECK: Supple, trachea midline. No JVD or lymphadenopathy. CARDIOVASCULAR: Regular rate and rhythm without murmurs, gallops, or rubs. RESPIRATORY: Breath sounds equal bilaterally. No accessory muscle use. GASTROINTESTINAL: Abdomen soft, non-tender, nondistended. MUSCULOSKELETAL: No cyanosis, or edema. BACK: Nontender without obvious deformity. No CVA tenderness. Procedures EEG Normal stage II sleep electroencephalogram. No evidence for a focal or diffuse abnormality. A/P Assessment and Plan 51 YOWF with history of substance abuse, tobacco abuse, and MRSA brought to the ED after having an apparent witnessed seizure. She is also found to have R elbow cellulitis with low-grade fever. Probable Seizure - CT head negative - EEG shows no focal or diffuse abnormalities. - UDS positive for cocaine - EtOH level negative - prolactin level pending. - Neurology evaluated patient. Cleared from neurological standpoint. - Seizure precautions - Ativan PRN R elbow cellulitis - Right elbow erythema, swelling all normalized. - Will d/c abx and start keflex PO. Tobacco abuse - Counseled on cessation - Nicotine patch if desired EtOH abuse cocaine abuse - [facility] protocol - Counseled on cessation Full code. Probable discharge on 12/12/2017. Guerita Sewell DO December 11, 2017 2:25 pm
[2017-12-11] MEDS: CEPHALEXIN MONOHYDRATE 500 MG CAP PO SCH (22:31)
[2017-12-12 00:02] VITALS: PULSE 82
[2017-12-12 00:47] VITALS: BP 142/85; PULSE 96; RESP 6; TEMP 98.1; O2SAT 97
[2017-12-12] MEDS: SODIUM CHLOR 0.9% 1000 ML INJ 1,000 ML IV SCH (03:34)
[2017-12-12 04:06] VITALS: PULSE 85
[2017-12-12] MEDS: CEPHALEXIN MONOHYDRATE 500 MG CAP PO SCH (06:24)
[2017-12-12 08:01] VITALS: BP 132/85; PULSE 86; RESP 18; TEMP 98.3; O2SAT 96
[2017-12-12] MEDS: SODIUM CHLORIDE 0.9% FLUSH 10 ML FLUSH IV FLUSH SCH (09:00)
[2017-12-12] MEDS ORDERED: CYANOCOBALAMIN 1000 MCG/ML VIAL SQ SCH (09:00)
[2017-12-12 09:25] VITALS: PULSE 94
[2017-12-12] MEDS: THIAMINE HCL 100 MG TAB PO SCH (09:35)
[2017-12-12] MEDS: FOLIC ACID 1 MG TAB PO SCH (09:35)
[2017-12-12] MEDS: MULTIVITAMIN TAB PO SCH (09:35)
[2017-12-12 11:43] VITALS: BP 130/75; PULSE 78; RESP 18; TEMP 98.7; O2SAT 93
[2017-12-12] MEDS ORDERED: THIA100 PO (11:59)
[2017-12-12] MEDS ORDERED: FOLI1TAB6 PO (11:59)
--- NOTE | 2017-12-12 12:01 | HHI.DS ---
Discharge Summary Admission Date December 10, 2017 at 3:58 pm Discharge Date: December 12, 2017 Admitting Diagnosis new onset seizure (1) Cocaine abuse ICD Code: F14.10 - Cocaine abuse, uncomplicated Procedures EEG Normal stage II sleep electroencephalogram. No evidence for a focal or diffuse abnormality. Brief History - From Admission 51 year old female with history of substance abuse, HCV, and MRSA brought to the ED after having an apparent seizure witnessed by her brother. Patient is a poor historian and part of the history was obtained through the ED physician who spoke to the brother when he was present. The patient is somnolent but arousable. She denies having a seizure and states she was shaking because she was feeling cold but also states she doesn't recall the episode and admits to feeling confused. She reports for months she has been feeling "lousy. " She is under a lot of stress which she attributes to paying her bills as she fears being homeless again and also she has a daughter doing IV drugs while and she has been trying to get her help. The patient endorses feeling depressed but denies suicidal ideations. She states she is not a daily drinker but when she does she binges in order to cope. Her last drink was two days ago in which she drank a small bottle of "brown liquor" within 30 minutes. The same day she states she also snorted cocaine. She reports redness and pain in her elbow but cannot tell me how long it's been there nor if she experienced any trauma or fell. She denies headache, visual disturbances, abdominal pain, nausea , or vomiting. She states she has intermittent swelling, pain, and redness over her hands, knees, and ankles associated. She has never been diagnosed with RA. She states she has never been diagnosed with any medical problems because she always leaves the hospital AMA and she cannot afford to see a doctor as an outpatient. She also endorses recent fecal incontinence and black stool about a month ago. She states she vomited blood a few months ago. She has not been worked up for any GI complaints. She denies chest pain, shortness of breath, nausea, or vomiting. CBC/BMP: 12/11/17 0840 12/11/17 0840 Significant Findings Laboratory Tests Test 12/10/17 13:46 12/10/17 14:16 12/11/17 08:30 12/11/17 08:40 Creatinine 1.15 MG/DL (0.50-1.00) Random Glucose 131 MG/DL (74-106) Chloride Level 108 MEQ/L (98-107) Estimat Glomerular Filtration Rate 50 ML/MIN (>89) Urine Occult Blood TRACE (NEG) Urine RBC 4 /hpf (0-3) Urine Bacteria RARE /hpf (NONE) Urine Cocaine Screen POS (NEG) Monocytes (%) (Auto) 8.1 % (0.0-8.0) Erythrocyte Sedimentation Rate 39 mm/hr (0-30) Blood Urea Nitrogen 5 MG/DL (7-18) Calcium Level 7.7 MG/DL (8.5-10.1) Potassium Level 3.2 MEQ/L (3.5-5.1) C-Reactive Protein 0.99 MG/DL (0.00-0.30) Test 12/11/17 08:41 Imaging Last Impressions Brain MRI 12/11/172 Signed Impressions: Service Date/Time: Monday, December 11, 2017 07:36 - CONCLUSION: 1. No acute intracranial abnormality is identified to explain the clinical symptoms. 2. There is moderate to severe periventricular and subcortical white matter signal change bilaterally. This is greater than typically seen in a patient of this age. While it could reflect chronic microvascular ischemic change should also give consideration to vascular disorders or demyelinating conditions as the cause. 3. 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 This is a nonspecific finding but can be seen following trauma, surgery, or with cocaine use. Marv Mtz MD Head CT 12/10/17 1329 Signed Impressions: Service Date/Time: Sunday, December 10, 2017 15:20 - CONCLUSION: No acute intracranial findings. Jarrett Patel MD Chest X-Ray 12/10/17 1329 Signed Impressions: Service Date/Time: Sunday, December 10, 2017 13:49 - CONCLUSION: Minimal left basilar atelectasis. No other acute cardiopulmonary disease identified. Jarrett Patel MD Elbow X-Ray 12/10/17 0000 Signed Impressions: Service Date/Time: Sunday, December 10, 2017 17:43 - CONCLUSION: Right elbow series within normal limits. Jarrett Patel MD PE at Discharge GENERAL: Alert, NAD. SKIN: Warm and dry.Bilateral elbow appears normal. No erythema, swelling. HEAD: Normocephalic. EYES: No scleral icterus. No injection or drainage. NECK: Supple, trachea midline. No JVD or lymphadenopathy. CARDIOVASCULAR: Regular rate and rhythm without murmurs, gallops, or rubs. RESPIRATORY: Breath sounds equal bilaterally. No accessory muscle use. GASTROINTESTINAL: Abdomen soft, non-tender, nondistended. MUSCULOSKELETAL: No cyanosis, or edema. BACK: Nontender without obvious deformity. No CVA tenderness. Pt update on day of discharge Patient is doing well. She does not have any fever, chills. No seizure activity. Wants to go home. Hospital Course 51 YOWF with history of substance abuse, tobacco abuse, and MRSA brought to the ED after having an apparent witnessed seizure. She is also found to have R elbow cellulitis with low-grade fever. Probable Seizure - CT head negative - EEG shows no focal or diffuse abnormalities. - UDS positive for cocaine - EtOH level negative - Patient is strongly advised to abstain from illicit drugs. R elbow cellulitis - Right elbow erythema, swelling all normalized. - Patient probably has rheumatoid arthritis. No evidence of cellulitis. We discontinued abx. - Encouraged patient to follow up at [facility]. Ideally, she should be evaluated by a Manager Community Outreach as well. Asymptomatic bacteruria -Patient is not symptomatic. No treatment necessary. Tobacco abuse - Counseled on cessation - Nicotine patch if desired EtOH abuse cocaine abuse - [facility] protocol - Counseled on cessation Full code. Pt Condition on Discharge: Good Discharge Disposition: Discharge Home Discharge Time: <= 30 minutes Discharge Instructions DIET: Follow Instructions for: As Tolerated, No Restrictions Activities you can perform: Regular-No Restrictions Follow up Referrals: Appointment for Follow Up - 2 Weeks with Rheumatology PCP Follow-up - 2 Weeks with [facility] New Medications: Folic Acid (Folic Acid) 1 Mg Tablet 1 MG PO DAILY for vitamin, #30 TAB Thiamine HCl (Gnp Vitamin B-1) 100 Mg Tab 100 MG PO DAILY for Vitamin, #30 TAB Discontinued Medications: Cephalexin (Keflex) 500 Mg Cap 500 MG PO Q8H for Infection, #30 CAP 0 Refills Sulfamethoxazole-Trimethoprim (Bactrim DS) 800-160 Mg Tab 1 TAB PO BID for Infection, #20 TAB 0 Refills Guerita Sewell DO December 12, 2017 12:01
[2017-12-12] MEDS ORDERED: PHARMACY ORDERED LAB ONE (23:45)
[2017-12-14 15:37] LABS: METHYLMALONIC ACID 0.1 nmol/mL (<=0.40)
== END 2017-12-12 13:08 | disposition home or self-care (01) | DRG 101 ==
LOC: NEPE 13:00 → NEDA 15:58 → NEPFCDU 17:09 → OBSVTOIN 20:34
PROVIDERS: ADMIT Hospitalist; ATTEND Hospitalist
DX: R56.9 Unspecified convulsions (principal); F14.10 Cocaine abuse, uncomplicated; L03.113 Cellulitis of right upper limb; J98.11 Atelectasis; M06.9 Rheumatoid arthritis, unspecified; R00.0 Tachycardia, unspecified; F10.10 Alcohol abuse, uncomplicated; Y90.0 Blood alcohol level of less than 20 mg/100 ml; N63.20 Unspecified lump in the left breast, unspecified quadrant; R82.71 Bacteriuria; B19.20 Unspecified viral hepatitis C without hepatic coma; F17.200 Nicotine dependence, unspecified, uncomplicated; F41.9 Anxiety disorder, unspecified; Z86.14 Personal history of Methicillin resistant Staphylococcus aureus infection; Z86.73 Personal history of transient ischemic attack (TIA), and cerebral infarction without residual deficits
CPT/HCPCS: 70450; 70553; 71045; 73070; 80048; 80053; 80307; 81001; 82140; 82550; 82607; 83605; 83735; 83921; 84100; 84146; 84425; 84439; 84443; 85025; 85610; 85652; 85730; 86038; 86140; 86430; 86592; 87040; 87077; 87086; 87186; 87804; 93005; 95819; 96360; 96361; A9579; J0290; J0696; J2405; J3370; J3420; J7030; J7050